=== PATIENT | female | born 1985 | race Caucasian/White ===

== ENCOUNTER 2017-06-30 03:08 | Inpatient (IN) | payer OTHER ==
[2017-06-30] MEDS ORDERED: Ketorolac INJ* 30 MG/ML 1 ML VIAL IV ONE (03:37)
[2017-06-30] MEDS ORDERED: NS 0.9% 1000 ML*IV.FLUID IV ONE (03:37)
[2017-06-30] MEDS ORDERED: Morphine INJ* 4 MG/ML 1 ML SYRINGE (NEW SYRINGE VERSION) IV ONE ×2 (03:39→08:55)
[2017-06-30] MEDS ORDERED: Metoclopramide IV* 5 MG/ML 2 ML VIAL IV SLOW PU ONE (03:40)
[2017-06-30 04:29] LABS: ABS Basophils 0 10^3/ul (0-0.2); ABS Eosinophils 0.1 10^3/ul (0-0.6); ABS Lymphocytes 1.2 10^3/ul (1.0-4.8); ABS Monocytes 0.7 10^3/ul (0-0.8); ABS Neutrophils 14.5 10^3/ul (1.5-7.7); ABS Nucleated RBC 0 10^3/ul; Eosinophil % 0.4 % (0-6); Hematocrit 32 % (35-47); Hemoglobin 10.5 g/dl (12.0-16.0); Lymphocyte % 7.2 % (25-47); Mean Corpuscular HGB Conc 33 g/dl (31-36); Mean Corpuscular Hemoglobin 26 pg (27-31); Mean Corpuscular Volume 79 fL (80-97); Mean Platelet Volume 8 um3 (7.4-10.4); Nucleated Red Blood Cells % 0; Platelet Count 453 10^3/ul (150-450); Red Blood Count 4.02 10^6/ul (4.0-5.4); Red Cell Distribution Width 16 % (10.5-15); White Blood Count 16.5 10^3/ul (3.5-10.8)
[2017-06-30] MEDS ORDERED: Potassium Chlor TAB* 20 MEQ TAB.ER PO ONE (04:44)
[2017-06-30] MEDS ORDERED: HYDROmorphone INJ* 2 MG/ML CARPUJECT SYRINGE IV SLOW PU ONE (05:51)
[2017-06-30 05:52] LABS: Urine Appearance Clear; Urine Blood 2+ (Negative); Urine Color Yellow; Urine Ketones Negative (Negative); Urine Protein 1+(30 mg/dL) (Negative); Urine Specific Gravity 1.028 (1.010-1.030); Urine Urobilinogen Negative (Negative)
[2017-06-30] MEDS ORDERED: Levofloxacin 750 MG IVPREMIX(* 750 MG/150 ML BAG IVPB ONE (06:09)
--- NOTE | 2017-06-30 06:30 | ED ---
Keshia Galeano Julia, scribed for Jarred Slater MD on 06/30/17 at 0403 . Abdominal Pain/Female - HPI Summary HPI Summary: This patient is a 32 year old F BIBA to [facility] accompanied by her with a chief complaint of LUQ abdominal pain that radiates to the L flank since 9:30 last night. Patient reports body aches and diaphoresis, chills at night, and soft stools for the past week. Patient denies dysuria.The patient rates the pain 8/10 in severity. Patient has history of UTIs. - History of Current Complaint Chief Complaint: EDFlankPain Stated Complaint: ABD PAIN Time Seen by Provider: 06/30/17 03:26 Hx Obtained From: Patient ?: No - Denies, had vasectomey Onset/Duration: Sudden Onset, Lasting Days Timing: Constant Pain Intensity: 8 Pain Scale Used: 0-10 Numeric Location: Discrete At: LUQ - Left, Flank Radiates: Yes Radiates to: Other - L flank Associated Signs and Symptoms: Positive: Other: - body aches and diaphoresis, chills at night, and soft stools Allergies/Adverse Reactions: Allergies Allergy/AdvReac Type Severity Reaction Status Date / Time Sulfa (Sulfonamide AdvReac Mild Rash Verified 06/30/17 03:19 Antibiotics) PMH/Surg Hx/FS Hx/Imm Hx Endocrine/Hematology History: Reports: Hx Diabetes - Gestational Cardiovascular History: Reports: Hx Hypertension - induced hypertension Denies: Hx Pacemaker/ICD Sensory History: Denies: Hx Hearing Aid Neurological History: Reports: Hx Migraine Psychiatric History: Reports: Hx Anxiety - post anxiety, Hx Panic Disorder - hx of anxiety mostly post related Denies: Hx Eating Disorder, Hx of Violent Episodes Against Others - Surgical History Surgery Procedure, Year, and Place: 2007, 2009, 2013 c section. appendectomy in 2005, wisdom teeth,paratoid cyst removal 2009,exploratory laparatomy for endometriosis 1999,nasal septum 2006 Hx Anesthesia Reactions: No Infectious Disease History: No Infectious Disease History: Denies: Hx Clostridium Difficile, Hx Hepatitis, Hx Human Immunodeficiency Virus (HIV), Hx of Known/Suspected MRSA, Hx Shingles, Hx Tuberculosis, Hx Known/ Suspected VRE, Hx Known/Suspected VRSA, History Other Infectious Disease, Traveled Outside the [place] in Last 30 Days - Family History Known Family History: Negative: Cardiac Disease - Social History Alcohol Use: Occasionally Substance Use Type: Reports: None Smoking Status (MU): Heavy Every Day Tobacco Smoker Type: Cigarettes Amount Used/How Often: 1/2 PPD Length of Time of Smoking/Using Tobacco: On and Off for 16 Years (~8 Years) Have You Smoked in the Last Year: Yes Review of Systems Positive: Chills, Skin Diaphoresis, Other - body aches Positive: Abdominal Pain Positive: flank pain. Negative: dysuria All Other Systems Reviewed And Are Negative: Yes Physical Exam - Summary Physical Exam Summary: VITAL SIGNS: Reviewed. GENERAL: Patient is a well-developed and nourished female who is lying comfortable in the stretcher. Patient is not in any acute respiratory distress. HEAD AND FACE: No signs of trauma. No ecchymosis, hematomas or skull depressions. No sinus tenderness. EYES: PERRLA, EOMI x 2, No injected conjunctiva, no nystagmus. EARS: Hearing grossly intact. Ear canals and tympanic membranes are within normal limits. MOUTH: Oropharynx within normal limits. NECK: Supple, trachea is midline, no adenopathy, no JVD, no carotid bruit, no c- spine tenderness, neck with full ROM. CHEST: Symmetric, no tenderness at palpation LUNGS: Clear to auscultation bilaterally. No wheezing or crackles. CVS: Regular rate and rhythm, S1 and S2 present, no murmurs or gallops appreciated. ABDOMEN: Soft, L CVA tenderness. No signs of distention. No rebound no guarding , and no masses palpated. Bowel sounds are hyperactive. EXTREMITIES: FROM in all major joints, no edema, no cyanosis or clubbing. NEURO: Alert and oriented x 3. No acute neurological deficits. Speech is normal and follows commands. SKIN: Dry and warm Triage Information Reviewed: Yes Vital Signs On Initial Exam: Initial Vitals Temp Pulse Resp BP Pulse Ox 98.8 F 117 18 122/72 99 06/30/17 03:17 06/30/17 03:17 18 03:17 06/30/17 03:17 06/30/17 03:17 Vital Signs Reviewed: Yes Diagnostics - Vital Signs Vital Signs Temp Pulse Resp BP Pulse Ox 06/30/17 03:17 98.8 F 117 18 122/72 99 - Laboratory Lab Results: Lab Results 06/30/17 06/30/17 06/30/17 Range/Units 04:00 04:00 04:00 WBC 16.5 H (3.5-10.8) 10^3/ul RBC 4.02 (4.0-5.4) 10^6/ul Hgb 10.5 L (12.0-16.0) g/dl Hct 32 L (35-47) % MCV 79 L (80-97) fL MCH 26 L (27-31) pg MCHC 33 (31-36) g/dl RDW 16 H (10.5-15) % Plt Count 453 H (150-450) 10^3/ul MPV 8 (7.4-10.4) um3 Neut % (Auto) 87.7 H (38-83) % Lymph % (Auto) 7.2 L (25-47) % [place] % (Auto) 4.5 (0-7) % Eos % (Auto) 0.4 (0-6) % Baso % (Auto) 0.2 (0-2) % Absolute Neuts (auto) 14.5 H (1.5-7.7) 10^3/ul Absolute Lymphs (auto) 1.2 (1.0-4.8) 10^3/ul Absolute Monos (auto) 0.7 (0-0.8) 10^3/ul Absolute Eos (auto) 0.1 (0-0.6) 10^3/ul Absolute Basos (auto) 0 (0-0.2) 10^3/ul Absolute Nucleated RBC 0 10^3/ul Nucleated RBC % 0 Sodium 135 (133-145) mmol/L Potassium 3.2 L (3.5-5.0) mmol/L Chloride 103 (101-111) mmol/L Carbon Dioxide 27 (22-32) mmol/L Anion Gap 5 (2-11) mmol/L BUN 16 (6-24) mg/dL Creatinine 0.58 (0.51-0.95) mg/dL Est GFR ( Amer) 153.0 (>60) Est GFR (Non-Af Amer) 119.0 (>60) BUN/Creatinine Ratio 27.6 H (8-20) Glucose 99 (70-100) mg/dL Lactic Acid 0.9 (0.5-2.0) mmol/L Calcium 9.2 (8.6-10.3) mg/dL Total Bilirubin 0.20 (0.2-1.0) mg/dL AST 8 L (13-39) U/L ALT 9 (7-52) U/L Alkaline Phosphatase 68 (34-104) U/L C-Reactive Protein 137.84 H (< 5.00) mg/L Total Protein 8.2 (6.4-8.9) g/dL Albumin 3.6 (3.2-5.2) g/dL Globulin 4.6 H (2-4) g/dL Albumin/Globulin Ratio 0.8 L (1-3) Beta HCG, Quant < 0.60 mIU/mL Urine Color Urine Appearance Urine pH (5-9) Ur Specific Campbell (1.010-1.030) Urine Protein (Negative) Urine Ketones (Negative) Urine Blood (Negative) Urine Nitrate (Negative) Urine Bilirubin (Negative) Urine Urobilinogen (Negative) Ur Leukocyte Esterase (Negative) Urine WBC (Auto) (Absent) Urine RBC (Auto) (Absent) Urine Bacteria (Absent) Urine Glucose (Negative) 06/30/17 Range/Units 05:15 WBC (3.5-10.8) 10^3/ul RBC (4.0-5.4) 10^6/ul Hgb (12.0-16.0) g/dl Hct (35-47) % MCV (80-97) fL MCH (27-31) pg MCHC (31-36) g/dl RDW (10.5-15) % Plt Count (150-450) 10^3/ul MPV (7.4-10.4) um3 Neut % (Auto) (38-83) % Lymph % (Auto) (25-47) % [place] % (Auto) (0-7) % Eos % (Auto) (0-6) % Baso % (Auto) (0-2) % Absolute Neuts (auto) (1.5-7.7) 10^3/ul Absolute Lymphs (auto) (1.0-4.8) 10^3/ul Absolute Monos (auto) (0-0.8) 10^3/ul Absolute Eos (auto) (0-0.6) 10^3/ul Absolute Basos (auto) (0-0.2) 10^3/ul Absolute Nucleated RBC 10^3/ul Nucleated RBC % Sodium (133-145) mmol/L Potassium (3.5-5.0) mmol/L Chloride (101-111) mmol/L Carbon Dioxide (22-32) mmol/L Anion Gap (2-11) mmol/L BUN (6-24) mg/dL Creatinine (0.51-0.95) mg/dL Est GFR ( Amer) (>60) Est GFR (Non-Af Amer) (>60) BUN/Creatinine Ratio (8-20) Glucose (70-100) mg/dL Lactic Acid (0.5-2.0) mmol/L Calcium (8.6-10.3) mg/dL Total Bilirubin (0.2-1.0) mg/dL AST (13-39) U/L ALT (7-52) U/L Alkaline Phosphatase (34-104) U/L C-Reactive Protein (< 5.00) mg/L Total Protein (6.4-8.9) g/dL Albumin (3.2-5.2) g/dL Globulin (2-4) g/dL Albumin/Globulin Ratio (1-3) Beta HCG, Quant mIU/mL Urine Color Yellow Urine Appearance Clear Urine pH 5.0 (5-9) Ur Specific Campbell 1.028 (1.010-1.030) Urine Protein 1+(30 mg/dl) A (Negative) Urine Ketones Negative (Negative) Urine Blood 2+ A (Negative) Urine Nitrate Negative (Negative) Urine Bilirubin Negative (Negative) Urine Urobilinogen Negative (Negative) Ur Leukocyte Esterase Negative (Negative) Urine WBC (Auto) Trace(0-5/hpf) (Absent) Urine RBC (Auto) 3+(>10/hpf) A (Absent) Urine Bacteria 1+ A (Absent) Urine Glucose Negative (Negative) Result Diagrams: 06/30/17 04:00 06/30/17 04:00 Lab Statement: Any lab studies that have been ordered have been reviewed, and results considered in the medical decision making process. - CT A/P CT Interpretation Completed By: Radiologist - High density in the renal medullary pyramids suggest medullary sponge kidney. Re-Evaluation - Re-Evaluation 1 Re-Evaluation Time: 06:00 Change: Unchanged - Patient is still in pain, despite pain meds Abdominal Pain Fem Course/Dx - Course Course Of Treatment: Patient presents with LUQ abdominal pain that radiates to the L flank since 9:30 last night. Patient reports body aches and diaphoresis, chills at night, and soft stools for the past week. Patient is given Dilaudid, Toradol, Reglan, Morphine, and Potassium Chloride. A CT A/P indicative of left pyelonephritis. Patient is still in pain while in ED despite pain medication. Patient is admitted by Dr. Lofton. - Diagnoses Provider Diagnoses: left pyelonephritis - Provider Notifications Discussed Care Of Patient With: Michael Lofton - hospitalist Time Discussed With Above Provider: 06:13 Instructed by Provider To: Admit As Inpatient Discharge - Discharge Plan Condition: Fair Disposition: ADMITTED TO [facility] Referrals: Ximena Fuentes SURGEON ASSISTANT [Primary Care Provider] - The documentation as recorded by the Keshia guo Julia accurately reflects the service I personally performed and the decisions made by , Jarred Slater MD.
[2017-06-30] MEDS ORDERED: oxyCODONE TAB* 5 MG TAB PO PRN ×2 (07:48→12:00)
[2017-06-30 08:22] LABS: Corrected Retic Count 0.5 % (0.5-1.5); Hematocrit for Retic CNT 33 % (35-47); Immature Retic Fraction 0.38
--- NOTE | 2017-06-30 08:39 | RAD ---
CLINICAL HISTORY: Left-sided abdominal pain. Relevant surgical history includes appendectomy and "exploratory laparotomy for endometriosis" COMPARISON: None TECHNIQUE: Noncontrast CT examination of the abdomen and pelvis from the lung bases through the initial tuberosities. FINDINGS: VISUALIZED LUNG BASES: The visualized lung bases are grossly clear. There is no pleural effusion. ABDOMEN AND PELVIS: Evaluation of the solid organs and vasculature is limited without intravenous contrast. The liver, spleen, pancreas and adrenal glands are grossly normal in appearance. The gallbladder is normal. There is symmetrical increased density at the bilateral renal pyramids. At the lower pole of the right kidney (coronal image 32) there is a punctate calcification. Otherwise the kidneys are normal in appearance without focal mass or signs of hydronephrosis. Evaluation of the gastrointestinal tract is limited without oral contrast. The small and large bowel are not distended. Consistent with the patient's reported surgical history, the appendix is not seen and there is surgical material the base of the cecum. There is no gross retroperitoneal or mesenteric lymphadenopathy. The pelvic viscera is normal in appearance. Evaluation of vasculature is highly limited in the absence of IV contrast but at the expected location of the left ovarian vein there appears to be a dilated vessel measuring up to 8 mm in short axis diameter (axial image 54 that is contiguous with the left adnexa (axial image 63). The abdominal aorta and iliac arteries are normal in course and diameter. There are no sinister bone lesions. IMPRESSION: 1. Relative hyperattenuation at the bilateral renal appearance which could be seen in the setting of medullary sponge kidney. 2. Evaluation of vasculature is highly limited without intravenous contrast but there appears to be a mildly enlarged left ovarian vein contiguous with the left adnexa. Depending on the clinical presentation this could be seen in the setting of pelvic congestion syndrome (PCS). PCS is characterized by late day gravity dependent pelvic pain, dyspareunia, vague gastrointestinal symptoms and/or the presence of lower extremity and pelvic superficial varicose veins.
--- NOTE | 2017-06-30 08:41 | RAD ---
INDICATION: Fever, LEFT flank pain. COMPARISON: June 30, 2017 CT abdomen. TECHNIQUE: Dual energy PA and routine lateral views of the chest were obtained. REPORT: 6 cm RIGHT suprahilar rounded region of consolidation likely involving the superior segment of the RIGHT lower lobe. The lungs and pleural spaces are otherwise clear. Negative for pneumothorax. The heart, pulmonary vasculature, and mediastinal contours are unremarkable. Negative for free air beneath the diaphragm. IMPRESSION: In an appropriate clinical context the RIGHT suprahilar rounded region of airspace consolidation is most consistent with pneumonia. Radiographic follow-up after therapy suggested to assess for resolution.
[2017-06-30] MEDS: Ondansetron INJ* 2 MG/ML VIAL IV PRN ×2 (08:42→15:10)
[2017-06-30] MEDS ORDERED: Ondansetron INJ* 2 MG/ML VIAL IV ONE (08:56)
[2017-06-30] MEDS: Acetaminophen TAB* 325 MG PO PRN ×4 (09:56→23:16)
[2017-06-30] MEDS: NS 0.9% 1000 ML* 1,000 ML IV SCH ×2 (10:00→15:09)
--- NOTE | 2017-06-30 16:19 | PN ---
Progress Note - Progress Note Date of Service: 06/30/17 SOAP: Subjective: Reason for Consultation: Vague pelvic pain with top normal left ovarian vein seen on CT (Focused) HPI: Mrs. Segal is a woman that presented to the ER with left flank and pelvic pain for 24 hours and at least 3 weeks of feeling "unwell". She states that she has noticed more severe pelvic pain during menses, but is unsure if the pain is worse in the afternoons and evenings. She denies any significant pelvic or leg superficial varicose veins. She states that she occasionally has bleeding hemorrhoids since having children, but they have not required any treatment. She denies any extended post coital pain separate from the pain that caused her to visit the ER recently. PAST MEDICAL HISTORY: Includes gestational diabetes, hemorrhage, migraines, anxiety and depression now well controlled, history of gastritis now resolved, C- section x3, exploratory laparatomy for presumed endometriosis. MEDICATIONS: Includes oxycodone p.r.n. for migraines. ALLERGIES: To SULFA which causes a rash. FAMILY HISTORY: Father with type 1 diabetes, CAD, CKD, CHF, and CLL. Mother with MS. SOCIAL HISTORY: Previously smoked cigarettes, quit in her early 20s, now episodically smokes cigars. Rare alcohol. No illicits. 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 Objective: NAD, AAO x 3 Selected Entries 06/30/17 15:01 Temperature 101.5 F Temperature Oral Source Pulse Rate 118 Respiratory 17 Rate Blood Pressure 127/71 (mmHg) Blood Pressure 85 Mean O2 Sat by Pulse 100 Oximetry Labs: Laboratory Tests 06/30/17 06/30/17 04:00 04:00 WBC 16.5 H Neut % (Auto) 87.7 H Absolute Neuts (auto) 14.5 H BUN 16 Creatinine 0.58 Est GFR ( Amer) 153.0 Est GFR (Non-Af Amer) 119.0 BUN/Creatinine Ratio 27.6 H Imaging: Patient Name: CHELSEY SEGAL Medical Record#: [id number] Ordering Physician: Pop Marquez MD Acct.#: [id number] : 1985 Age: 32 Sex: F Location: EMERGENCY DEPARTMENT Exam Date: 06/30/17 0756 ADM Status: REG ER Order Information: CHEST PA & LAT 2 VWS Accession Number: [id number] CPT: 62654 INDICATION: Fever, LEFT flank pain. COMPARISON: June 30, 2017 CT abdomen. TECHNIQUE: Dual energy PA and routine lateral views of the chest were obtained. REPORT: 6 cm RIGHT suprahilar rounded region of consolidation likely involving the superior segment of the RIGHT lower lobe. The lungs and pleural spaces are otherwise clear. Negative for pneumothorax. The heart, pulmonary vasculature, and mediastinal contours are unremarkable. Negative for free air beneath the diaphragm. IMPRESSION: In an appropriate clinical context the RIGHT suprahilar rounded region of airspace consolidation is most consistent with pneumonia. Radiographic follow- up after therapy suggested to assess for resolution. <Electronically signed by Rubén Figueroa MD in OV> 06/30/17836 Dictated By: Rubén Figueroa MD Dictated Date/Time: 06/30/17836 Transcribed Date/Time: 06/30/17831 Patient Name: CHELSEY SEGAL Medical Record#: [id number] Ordering Physician: Jarred Slater MD Acct.#: [id number] : 1985 Age: 32 Sex: F Location: EMERGENCY DEPARTMENT Exam Date: 06/30/17337 ADM Status: [facility] ER Order Information: CT ABD/PEL W/O Accession Number: [id number] CPT: 33857 CLINICAL HISTORY: Left-sided abdominal pain. Relevant surgical history includes appendectomy and "exploratory laparotomy for endometriosis" COMPARISON: None TECHNIQUE: Noncontrast CT examination of the abdomen and pelvis from the lung bases through the initial tuberosities. FINDINGS: VISUALIZED LUNG BASES: The visualized lung bases are grossly clear. There is no pleural effusion. ABDOMEN AND PELVIS: Evaluation of the solid organs and vasculature is limited without intravenous contrast. The liver, spleen, pancreas and adrenal glands are grossly normal in appearance. The gallbladder is normal. There is symmetrical increased density at the bilateral renal pyramids. At the lower pole of the right kidney (coronal image 32) there is a punctate calcification. Otherwise the kidneys are normal in appearance without focal mass or signs of hydronephrosis. Evaluation of the gastrointestinal tract is limited without oral contrast. The small and large bowel are not distended. Consistent with the patient's reported surgical history, the appendix is not seen and there is surgical material the base of the cecum. There is no gross retroperitoneal or mesenteric lymphadenopathy. The pelvic viscera is normal in appearance. Evaluation of vasculature is highly limited in the absence of IV contrast but at the expected location of the left ovarian vein there appears to be a dilated vessel measuring up to 8 mm in short axis diameter ( axial image 54 that is contiguous with the left adnexa (axial image 63). The abdominal aorta and iliac arteries are normal in course and diameter. There are no sinister bone lesions. IMPRESSION: 1. Relative hyperattenuation at the bilateral renal appearance which could be seen in the setting of medullary sponge kidney. 2. Evaluation of vasculature is highly limited without intravenous contrast but there appears to be a mildly enlarged left ovarian vein contiguous with the left adnexa. Depending on the clinical presentation this could be seen in the setting of pelvic congestion syndrome (PCS). PCS is characterized by late day gravity dependent pelvic pain, dyspareunia, vague gastrointestinal symptoms and/or the presence of lower extremity and pelvic superficial varicose veins. <Electronically signed by Fabian Sahni MD in OV> 06/30/17 0836 Dictated By: Fabian Sahni MD Assessment: Subsequent to my conversation with Dr. Marquez in the morning, the patient has a chest xray that indicates her symptoms are most likely due to RUL pneumonia. As discussed with Chelsey, she may have an enlarged ovarain vein, but more women have symptom-free enlarge veins than women that have symptoms of Pelvic Congestion Syndrome. Certainly at this time I do not see any indication for further PCS workup. Plan: 1. Pneumonia treatment per medicine. 2. I discussed the features of PCS with Chelsey and gave her my contact information including my email. She was encouraged to look up PCS to determine if the menstrual/pelvic symptoms she has been experiencing are consistent with PCS. I will be happy to see her in the Interventional Radiology clinic should she decide her symptoms are severe enough to further investigate PCS.
--- NOTE | 2017-06-30 16:34 | HP ---
HISTORY AND PHYSICAL: DATE OF ADMISSION: 06/30/17 PRIMARY CARE PROVIDER: Rosita Fuentes NP HEALTHCARE PROXY: Her . CODE STATUS: Full. SOURCE OF INFORMATION: History obtained from interview with the patient and her . RELIABILITY: Good. CHIEF COMPLAINT: Left flank pain. HISTORY OF PRESENT ILLNESS: This is a 32-year-old female, no significant past medical history who had been in her usual state of health until approximately 2 weeks prior to presentation. She started to develop body aches and chills as well as night sweats that developed over the last 3 to 4 days to become lower back pain, occasionally involving her shoulders that left her feeling very uncomfortable. Around 2 a.m. the night of presentation, she woke up with left- sided flank pain and because of the increased pain, presented to the emergency room. She notes that she has had nausea over the last several weeks as well as vomiting several times per week, for the last 1 week. She has noted no dysuria , but has noted that her urine may have been malodorous. No urinary hesitancy. No diarrhea, constipation. She suffers from migraines as well as chronic daily headaches for which she takes Excedrin. She noticed no melena, bright red blood per rectum. She notes that her headaches have been worse with her fever, they started in the back of her head, although she does have periods of headache freedom after taking the Excedrin. She notes her menses are stable in duration, approximately 4 to 5 days without heavy bleeding, but over the last 3 to 4 months she has had increased pain with her menses. She notes palpitations at this time, but no chest pain, no shortness of breath. She notes increased fatigue at work, but has not consulted with her PCP at this time. When seen by this author, she is lying comfortably in bed. Her pain is well controlled without complaints expect for left flank pain. Her one child has been sick with the flu several weeks prior and both children have had strep throat. She denies any rhinorrhea or sore throat. She denies any cough. PAST MEDICAL HISTORY: Includes gestational diabetes, hemorrhage, migraines, anxiety and depression now well controlled, history of gastritis now resolved, x3. MEDICATIONS: Includes oxycodone p.r.n. for migraines. ALLERGIES: To SULFA which causes a rash. FAMILY HISTORY: Father with type 1 diabetes, CAD, CKD, CHF, and CLL. Mother with MS. SOCIAL HISTORY: Previously smoked cigarettes, quit in her early 20s, now episodically smokes cigars. Rare alcohol. No illicits. 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 REVIEW OF SYSTEMS: As per HPI, includes back pain becoming left-sided flank pain, positive nausea with episodic vomiting, fevers, chills with night sweats over several weeks, no weight loss, chronic daily headaches, malodorous urine, increased pain with menses, positive palpitations, increased fatigue, and sick contacts. Otherwise, all other systems reviewed and negative. PHYSICAL EXAMINATION GENERAL: Lying flat in bed, interactive, pleasant in no apparent distress. VITAL SIGNS: When seen by this author, 130/81, heart rate 119, respiratory rate is 18. She is 98% on room air. T-max in the emergency room is 100.6, although noted to be greater than 101 when measured at home. HEENT: Oropharynx is clear. She has moist mucous membranes. Sclerae are anicteric. NECK: She has no cervical or supraclavicular lymphadenopathy. She has elevated JVD to the angle of her ear. Lying flat in bed. LUNGS: Clear to auscultation. HEART: She has tachycardic heart rate with regular rhythm. No murmurs, rubs, or gallops. ABDOMEN: Soft, nontender, nondistended. Positive bowel sounds. EXTREMITIES: Her spine is midline. She has no tenderness to palpation, but costovertebral angle tenderness is quite severe on the left. Her extremities are warm, well perfused without clubbing, cyanosis, or edema. NEUROLOGIC: She is alert and oriented x3. She has no apparent anxiety, agitation, or depression. DIAGNOSTIC STUDIES/LAB DATA: Labs reviewed, notable for urine with blood, protein and 1+ bacteria, absent leukocyte esterase and nitrites. Trace white blood cells. Her serum white blood cell count is 16.5, 87.7 neutrophils, hemoglobin is 10.5, and MCV of 79. Potassium is 3.2, lactic acid 0.9, CRP is 137, beta hCG is less than 0.6. Data reviewed: Preliminary read from CT abdomen and pelvis without contrast indicates normal liver, spleen, pancreas, gallbladder, stomach, small bowel, large bowel, surgically absent appendix, although this is not correct per her H and P. Kidneys, note there is an increased density in the renal medullary pyramids suggesting small calcification and medullary sponge disease. Uterus is normal. Rectum normal. Bladder normal. With final impression, high density in the renal medullary pyramids suggestive of medullary sponge disease. Official read is pending. ASSESSMENT AND PLAN: This is a 32-year-old female presenting with several weeks of body aches, chills, and night sweats now found with fevers, leukocytosis, and exam was notable for a left flank pain. Systemic inflammatory response syndrome. Patient meets systemic inflammatory response syndrome criteria with tachycardia, fever. No notable source for infection identified at this time. She meets sepsis criteria. Most likely, do suspect infection with the urine as a source given bacteria in the urine as well as left flank pain. Blood cultures are pending. Received levofloxacin in the emergency room. We will continue with ceftriaxone. Two additional liters normal saline at 200 cc/hour until heart rate is better controlled. Tylenol for fever. I will check chest x-ray to complete fever workup. Check rapid flu given sick contacts at home. Hold on strep testing given absence of symptoms. Additional management pending findings of above. Hypokalemia, received potassium in the emergency room. We will follow repeat imaging tomorrow. History of headache, continue oxycodone for both flank pain as well as headache. Anemia, unclear etiology at this time. Add on iron, TIBC, ferritin, iron saturation, and reticulocyte counts at ED labs. Initiate iron if iron deficient. No obvious source of bleeding at this time. DVT prophylaxis, low risk. Ambulate ad tonny. [id number]/[facility] #: [id number] [facility]
--- NOTE | 2017-06-30 16:53 | CONSULT ---
Consult Consult: Date of Service: 06/30/17 Reason for Consultation: Vague pelvic pain with top normal left ovarian vein seen on CT (Focused) HPI: Mrs. Segal is a woman that presented to the ER with left flank and pelvic pain for 24 hours and at least 3 weeks of feeling "unwell". She states that she has noticed more severe pelvic pain during menses, but is unsure if the pain is worse in the afternoons and evenings. She denies any significant pelvic or leg superficial varicose veins. She states that she occasionally has bleeding hemorrhoids since having children, but they have not required any treatment. She denies any extended post coital pain separate from the pain that caused her to visit the ER recently. PAST MEDICAL HISTORY: Includes gestational diabetes, hemorrhage, migraines, anxiety and depression now well controlled, history of gastritis now resolved, C- section x3, exploratory laparatomy for presumed endometriosis. MEDICATIONS: Includes oxycodone p.r.n. for migraines. ALLERGIES: To SULFA which causes a rash. FAMILY HISTORY: Father with type 1 diabetes, CAD, CKD, CHF, and CLL. Mother with MS. SOCIAL HISTORY: Previously smoked cigarettes, quit in her early 20s, now episodically smokes cigars. Rare alcohol. No illicits. 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 Objective: NAD, AAO x 3 Selected Entries 06/30/17 15:01 Temperature 101.5 F Temperature Oral Source Pulse Rate 118 Respiratory 17 Rate Blood Pressure 127/71 (mmHg) Blood Pressure 85 Mean O2 Sat by Pulse 100 Oximetry Labs: Laboratory Tests 06/30/17 06/30/17 04:00 04:00 WBC 16.5 H Neut % (Auto) 87.7 H Absolute Neuts (auto) 14.5 H BUN 16 Creatinine 0.58 Est GFR ( Amer) 153.0 Est GFR (Non-Af Amer) 119.0 BUN/Creatinine Ratio 27.6 H Imaging: Patient Name: CHELSEY SEGAL Medical Record#: [id number] Ordering Physician: Pop Marquez MD Acct.#: [id number] : 1985 Age: 32 Sex: F Location: EMERGENCY DEPARTMENT Exam Date: 06/30/17 0756 ADM Status: REG ER Order Information: CHEST PA & LAT 2 VWS Accession Number: [id number] CPT: 32797 INDICATION: Fever, LEFT flank pain. COMPARISON: June 30, 2017 CT abdomen. TECHNIQUE: Dual energy PA and routine lateral views of the chest were obtained. REPORT: 6 cm RIGHT suprahilar rounded region of consolidation likely involving the superior segment of the RIGHT lower lobe. The lungs and pleural spaces are otherwise clear. Negative for pneumothorax. The heart, pulmonary vasculature, and mediastinal contours are unremarkable. Negative for free air beneath the diaphragm. IMPRESSION: In an appropriate clinical context the RIGHT suprahilar rounded region of airspace consolidation is most consistent with pneumonia. Radiographic follow- up after therapy suggested to assess for resolution. <Electronically signed by Rubén Figueroa MD in [place]> 06/30/17836 Dictated By: Rubén Figueroa MD Dictated Date/Time: 06/30/17836 Transcribed Date/Time: 06/30/17831 Patient Name: CHELSEY SEGAL Medical Record#: [id number] Ordering Physician: Jarred Slater MD Acct.#: [id number] : 1985 Age: 32 Sex: F Location: EMERGENCY DEPARTMENT Exam Date: 06/30/17337 ADM Status: [facility] ER Order Information: CT ABD/PEL W/O Accession Number: [id number] CPT: 23962 CLINICAL HISTORY: Left-sided abdominal pain. Relevant surgical history includes appendectomy and "exploratory laparotomy for endometriosis" COMPARISON: None TECHNIQUE: Noncontrast CT examination of the abdomen and pelvis from the lung bases through the initial tuberosities. FINDINGS: VISUALIZED LUNG BASES: The visualized lung bases are grossly clear. There is no pleural effusion. ABDOMEN AND PELVIS: Evaluation of the solid organs and vasculature is limited without intravenous contrast. The liver, spleen, pancreas and adrenal glands are grossly normal in appearance. The gallbladder is normal. There is symmetrical increased density at the bilateral renal pyramids. At the lower pole of the right kidney (coronal image 32) there is a punctate calcification. Otherwise the kidneys are normal in appearance without focal mass or signs of hydronephrosis. Evaluation of the gastrointestinal tract is limited without oral contrast. The small and large bowel are not distended. Consistent with the patient's reported surgical history, the appendix is not seen and there is surgical material the base of the cecum. There is no gross retroperitoneal or mesenteric lymphadenopathy. The pelvic viscera is normal in appearance. Evaluation of vasculature is highly limited in the absence of IV contrast but at the expected location of the left ovarian vein there appears to be a dilated vessel measuring up to 8 mm in short axis diameter ( axial image 54 that is contiguous with the left adnexa (axial image 63). The abdominal aorta and iliac arteries are normal in course and diameter. There are no sinister bone lesions. IMPRESSION: 1. Relative hyperattenuation at the bilateral renal appearance which could be seen in the setting of medullary sponge kidney. 2. Evaluation of vasculature is highly limited without intravenous contrast but there appears to be a mildly enlarged left ovarian vein contiguous with the left adnexa. Depending on the clinical presentation this could be seen in the setting of pelvic congestion syndrome (PCS). PCS is characterized by late day gravity dependent pelvic pain, dyspareunia, vague gastrointestinal symptoms and/or the presence of lower extremity and pelvic superficial varicose veins. <Electronically signed by Fabian Sahni MD in [place]> 06/30/17 0836 Dictated By: Fabian Sahni MD Assessment: Subsequent to my conversation with Dr. Marquez in the morning, the patient has a chest xray that indicates her symptoms are most likely due to RUL pneumonia. As discussed with Chelsey, she may have an enlarged ovarain vein, but more women have symptom-free enlarge veins than women that have symptoms of Pelvic Congestion Syndrome. Certainly at this time I do not see any indication for further PCS workup. Plan: 1. Pneumonia treatment per medicine. 2. I discussed the features of PCS with Chelsey and gave her my contact information including my email. She was encouraged to look up PCS to determine if the menstrual/pelvic symptoms she has been experiencing are consistent with PCS. I will be happy to see her in the Interventional Radiology clinic should she decide her symptoms are severe enough to further investigate PCS.
[2017-06-30] MEDS: Morphine INJ* 4 MG/ML 1 ML SYRINGE (NEW SYRINGE VERSION) IV PRN ×2 (17:38→21:17)
[2017-07-01] MEDS: Morphine INJ* 4 MG/ML 1 ML SYRINGE (NEW SYRINGE VERSION) IV PRN ×3 (01:13→09:47)
[2017-07-01] MEDS: Acetaminophen TAB* 325 MG PO PRN ×2 (04:17→08:44)
[2017-07-01] MEDS: Ondansetron INJ* 2 MG/ML VIAL IV PRN ×2 (04:17→12:20)
[2017-07-01 06:44] LABS: ABS Basophils 0 10^3/ul (0-0.2); ABS Eosinophils 0 10^3/ul (0-0.6); ABS Lymphocytes 1.5 10^3/ul (1.0-4.8); ABS Monocytes 1.1 10^3/ul (0-0.8); ABS Neutrophils 13.6 10^3/ul (1.5-7.7); ABS Nucleated RBC 0 10^3/ul; Eosinophil % 0.3 % (0-6); Hematocrit 27 % (35-47); Hemoglobin 9.1 g/dl (12.0-16.0); Mean Corpuscular HGB Conc 33 g/dl (31-36); Mean Corpuscular Hemoglobin 26 pg (27-31); Mean Corpuscular Volume 79 fL (80-97); Mean Platelet Volume 8 um3 (7.4-10.4); Nucleated Red Blood Cells % 0; Platelet Count 362 10^3/ul (150-450); Red Blood Count 3.48 10^6/ul (4.0-5.4); Red Cell Distribution Width 16 % (10.5-15); White Blood Count 16.3 10^3/ul (3.5-10.8)
[2017-07-01 07:14] LABS: EGFR Non-African American 132.1 (>60)
[2017-07-01] MEDS ORDERED: cefTRIAXone(*) 1 GM in NS 0.9% 50 ML* 50 ML IVPB SCH (08:00)
[2017-07-01] MEDS: cefTRIAXone 1000 MG SYRINGE IVPB Q24H IVPB SCH ×2 (08:23)
[2017-07-01] MEDS ORDERED: Ferrous Sulfate TAB* 325 MG PO SCH (09:00)
[2017-07-01] MEDS ORDERED: NS 0.9% 250 ML* 250 ML ONE (09:10)
[2017-07-01] MEDS: Azithromycin IV(*) 500 MG in NS 0.9% 250 ML* 250 ML IVPB SCH (09:13)
[2017-07-01] MEDS: Potassium Chlor TAB* 20 MEQ TAB.ER PO SCH ×2 (09:13→20:25)
--- NOTE | 2017-07-01 13:53 | PN ---
Subjective Date of Service: 07/01/17 Interval History: Patient states that she is feeling better. States that her pain in her flank has decreased with her defervscense and is now controllable on oral medications. Patient states that is is worse with deep breathing. Patient states that she has an occasional cough that produces small amounts of sputum and states that she has had an intermittent cough over the past month that is not productive. Patient states that she has been having MOCTEZUMA especially with climbing stairs within the past month along with general fatigue. Patient states that her LMP was in the First week of May and that she occasionally has menstruation that occurs in a greater than 1 month cycle but that she is usually regular. Patient denies any changes in her hair or nails, or constipation. Patient states that she has daily headaches which are frontal and that are usually responsive to excedrin and then typical migraines with aura which occur approximately twice a month without patterns or discernable precipitating factors. Patient denies current PATEL, changes in vision, F/C, N/V, CP, SOB, abdominal pain, dysuria, rash, or other pain. Family History: Unchanged from Admission Social History: Unchanged from Admission Past Medical History: Unchanged from Admission Objective Active Medications: Acetaminophen (Tylenol Tab*) 650 mg PO Q4H PRN PRN Reason: FEVER/PAIN Last Admin: 07/01/17 08:44 Dose: 650 mg Ferrous Sulfate (Ferrous Sulfate Tab*) 325 mg PO EVERY OTHER DAY [facility] Last Admin: 07/01/17 09:12 Dose: 325 mg Azithromycin 500 mg/ Sodium (Chloride) 250 mls @ 250 mls/hr IVPB Q24H [facility] Last Admin: 07/01/17 09:13 Dose: 250 mls/hr Ceftriaxone Sodium 1,000 mg/ (Sterile Water) 10 mls @ 40 mls/hr IVPB Q24H [facility] Last Admin: 07/01/17 08:23 Dose: 40 mls/hr Ondansetron HCl (Zofran Inj*) 4 mg IV Q4H PRN PRN Reason: NAUSEA/VOMITING Last Admin: 07/01/17 12:20 Dose: 4 mg Oxycodone HCl (Roxycodone Tab*) 10 mg PO Q6H PRN PRN Reason: PAIN Potassium Chloride (Klor Con Er Tab*) 20 meq PO BID [facility] Stop: 07/01/17 21:01 Last Admin: 07/01/17 09:13 Dose: 20 meq Vital Signs - 8 hr 07/01/17 07/01/17 09:47 11:37 Temperature 97.7 F Pulse Rate 84 Respiratory 18 17 Rate Blood Pressure 123/78 (mmHg) O2 Sat by Pulse 100 Oximetry Oxygen Devices in Use Now: None Appearance: Patient is a 32yo female who appears stated age and is sitting in the bed in [facility]. Eyes: No Scleral Icterus, PERRLA Ears/Nose/Mouth/Throat: NL Teeth, Lips, Gums, Clear Oropharnyx, Mucous Membranes Moist Neck: NL Appearance and Movements; NL JVP, Trachea Midline Respiratory: Symmetrical Chest Expansion and Respiratory Effort, Clear to Auscultation Cardiovascular: NL Sounds; No Murmurs; No JVD, RRR, No Edema Abdominal: NL Sounds; No Tenderness; No Distention, - - Spleen palpable under Left costal margin. Traube's space dull to percussion with deep breathing. Lymphatic: No Cervical Adenopathy Extremities: No Edema, No Clubbing, Cyanosis Skin: No Rash or Ulcers, No Nodules or Sclerosis Neurological: Alert and Oriented x 3, NL Sensation, NL Muscle Strength and Tone , - - CN II-XII intact. Result Diagrams: 07/01/17 06:09 07/01/17 06:09 Additional Lab and Data: Lab Results Assess/Plan/Problems-Billing Assessment: Patient is a 32yo female with a PMH for hemorrhage, Gestational Diabetes, migraines, and gastritis who presents with fatigue for a month and then 3-4 days of severe left flank pain, fevers, without associated urinary symptoms with a high white blood cell count and a chest x-ray consistent with pneumonia who is improving on antibiotics. - Patient Problems (1) Pneumonia Current Visit: Yes Status: Acute Code(s): J18.9 - PNEUMONIA, UNSPECIFIED ORGANISM SNOMED Code(s): 581569017 Comment: WBC count, SOB on exertion, intermittent cough, and infiltrate on CXR most likely represents pneumonia. Procalcitonin low. Continue on empiric treatment for CAP at this time. CRP and ESR elevated. Will draw MITESH, RF, and CHEO level to assess for other pathology that could affect both the lungs and the kidneys. (2) Hematuria Current Visit: Yes Status: Acute Code(s): R31.9 - HEMATURIA, UNSPECIFIED SNOMED Code(s): 66128014 Comment: Patient had 3+ blood and 1+ protein in urine. Patient has no josesito hematuria. Patient is several days late on her menstrual periods. Patient states this is not abnormal for her. Blood could represent small amounts of menstrual blood, but could also represent kideny pathology. No WBCs or LE. Minimal growth of E. Coli on urine culture. Covered by CAP treatment. (3) Migraines Current Visit: Yes Status: Acute Code(s): G43.909 - MIGRAINE, UNSP, NOT INTRACTABLE, WITHOUT STATUS MIGRAINOSUS SNOMED Code(s): 06584426 Comment: Patient states that she takes oxycodone and excedrin daily for frontal headache. Discussed medication overuse headache with patient and recommended she follow up outpatient with a neurologist to facilitate weaning off her medications. (4) Anemia Current Visit: Yes Status: Acute Code(s): D64.9 - ANEMIA, UNSPECIFIED SNOMED Code(s): 086328569 Comment: Microcytic, Hypochromic Anemia with anisocytosis, not present in 04/2015. Patient is not aware of other history of anemia not related to post- hemorrhage. No menorrhagia. No melena. Will begin iron supplementation every other day. (5) Flank pain Current Visit: Yes Status: Acute Code(s): R10.9 - UNSPECIFIED ABDOMINAL PAIN SNOMED Code(s): 666612329 Comment: Flank pain associated with fevers but no WBC or LE on urinalysis and minimal growth on urine culture. CT negative for stones. Controlled with home oxycodone. Not likely pyelonephritis. (6) DVT prophylaxis Current Visit: Yes Status: Acute Code(s): GCP8291 - SNOMED Code(s): 249266223 (7) Full code status Current Visit: Yes Status: Acute Code(s): Z78.9 - OTHER SPECIFIED HEALTH STATUS SNOMED Code(s): 758385962 Status and Disposition: Inpatient. Will discharge when medically able.
[2017-07-01] MEDS: oxyCODONE TAB* 5 MG TAB PO PRN ×2 (16:54→23:12)
[2017-07-02] MEDS: Acetaminophen TAB* 325 MG PO PRN (03:35)
[2017-07-02] MEDS: oxyCODONE TAB* 5 MG TAB PO PRN (05:22)
[2017-07-02 05:49] LABS: ABS Basophils 0 10^3/ul (0-0.2); ABS Eosinophils 0.1 10^3/ul (0-0.6); ABS Monocytes 0.7 10^3/ul (0-0.8); ABS Neutrophils 8.3 10^3/ul (1.5-7.7); ABS Nucleated RBC 0 10^3/ul; Eosinophil % 1.2 % (0-6); Hematocrit 27 % (35-47); Hemoglobin 9.2 g/dl (12.0-16.0); Lymphocyte % 17.7 % (25-47); Mean Corpuscular HGB Conc 34 g/dl (31-36); Mean Corpuscular Hemoglobin 27 pg (27-31); Mean Corpuscular Volume 79 fL (80-97); Mean Platelet Volume 8 um3 (7.4-10.4); Nucleated Red Blood Cells % 0; Platelet Count 421 10^3/ul (150-450); Red Blood Count 3.47 10^6/ul (4.0-5.4); Red Cell Distribution Width 16 % (10.5-15); White Blood Count 11.1 10^3/ul (3.5-10.8)
[2017-07-02] MEDS: cefTRIAXone 1000 MG SYRINGE IVPB Q24H IVPB SCH ×2 (08:54)
[2017-07-02] MEDS: Azithromycin IV(*) 500 MG in NS 0.9% 250 ML* 250 ML IVPB SCH (09:18)
[2017-07-02 12:09] VITALS: BP 116/83
--- NOTE | 2017-07-03 14:13 | DS ---
CC: Rosita Fuentes NP * DISCHARGE SUMMARY: DATE OF ADMISSION: 06/30/17 DATE OF DISCHARGE: 07/02/17 PRIMARY CARE PROVIDER: Rosita Fuentes NP MY ATTENDING WHILE IN THE HOSPITAL: Minesh Goldsmith MD.* (DICTATED BY UYEN CALIX) PRIMARY DISCHARGE DIAGNOSES: 1. Flank pain. 2. Probable pneumonia. 3. Hematuria. 4. Iron deficiency anemia. SECONDARY DISCHARGE DIAGNOSES: 1. Migraines. 2. Gastritis. 3. Gestational diabetes. 4. hemorrhage. 5. depression and anxiety. CONSULTING PROVIDER: Fabian Sahni MD, of Interventional Radiology. STUDIES DONE WHILE IN THE HOSPITAL: Abdomen and pelvis CT from 06/30/17 read as relative hyperattenuation in the bilateral renal appearance which can be seen in setting of medullary sponge kidney. Evaluation of vascular is highly limited without intravenous contrast, but there appears to be mildly enlarged left ovarian vein contiguous with the left adnexa depending on the clinical presentation, this could be seen in the same pelvic congestion syndrome, PCS as characterized by gravity dependent pelvic pain, dyspareunia, vague gastrointestinal symptoms and/or presence of lower extremity and pelvic superficial varicose vein. Chest x-ray from 06/30/17 read as in appropriate clinical context, a right suprahilar rounded region of airspace consolidation that is most consistent with pneumonia, radiographic followup after therapy suggested to assess resolution. MEDICATIONS: 1. Oxycodone 50 mg p.o. q.12 hours as needed for pain. 2. Tylenol 650 mg p.o. q.4 hours as needed. 3. Azithromycin 250 mg p.o. daily x3. 4. Ceftin 500 mg p.o. q.12 hours x10. 5. Ferrous sulfate 325 mg p.o. every other day. 6. Excedrin 1 daily for headache. NEW MEDICATIONS AT DISCHARGE: 1. Tylenol. 2. Azithromycin. 3. Ceftin. 4. Ferrous sulfate. MEDICATION DISCONTINUED AT DISCHARGE: None. HOSPITAL COURSE: This is a brief summary of patient's presentation. For more details, please see the history and physical from Dr. Pop Marquez on . In brief, the patient is a 32-year-old female with past medical history significant for the above, who presents with a 1-month history of fatigue and slight dyspnea on exertion, especially when going upstairs. The patient has over the past 3 to 4 days before admission developed lower back pain, radiating into her flank. The patient also has nausea and vomiting for 1 week. The patient has no dysuria or other signs of urinary tract infection. The patient has daily headaches for which she takes Excedrin and oxycodone. The patient had no other symptoms. The patient was found to have a chest x-ray and abdominal CT as above and the patient was admitted to the hospital as she had high fevers up to 102.9 on admission. The patient was given Levaquin in the emergency department and then started on ceftriaxone and azithromycin on the floor. The patient had significant continued flank pain which increased overnight from 06/30/17 to 07/01/17 requiring IV morphine for control. This was discontinued after 5 doses and the patient had significant decrease in her symptoms. The patient had an elevated white blood cell count, sedimentation rate and C-reactive protein. The patient had decreased iron less than 15 and percent saturation of 4. The patient had negative procalcitonin and was treated for pneumonia any ways. The patient's chest x-ray was re-examined and showed the possibility of hilar lymphadenopathy on the left and right side in addition to the above read infiltrate. The patient states that she defervesced in the morning of 07/01/17 and this significantly decreased her flank pain, so she was able to be transitioned back to oxycodone orally for her pain. The patient did not have any fevers after the afternoon of 06/30/17. The patient was tachycardic when she had fevers, but had no other significant vital sign abnormalities including hypoxia. The patient states that she had had an intermittent dry cough over the course of last month to accompany her fatigue, but had no significant increase in her cough while in the hospital. The patient has chronic daily headaches for which she takes Excedrin daily and oxycodone. The patient states that she has never seen a neurologist for this and was not familiar with the concept of medication overuse headaches. The patient continued to improve. The patient did not have evidence of kidney stone on CT exam as above and did not pass any kidney stones into the filter. In the hospital; however, she did pass a small amount of mucus which she states accompanied the significant decrease in her flank pain. The patient had 3+ blood and 1+ protein in her urine and 1+ bacteria which grew out to be 25,000 to 50,000 colonies of E. coli, likely a contaminant. The patient had hypokalemia while in the hospital which was resolved with supplementation. The patient on 07/02/17, had decrease in white blood cell count from 16.5 to 11.1. There was no significant decrease in patient's white blood cell count from 06/30 to 07/01/17. The patient had thyroid testing which was within normal limits. The patient had iron studies as above and was started on iron supplementation which she tolerated well. There was concern for the patient having disorder affecting both her kidneys and her lungs. Rheumatoid factor, antinuclear antibody, ANCA panel and angiotensin converting enzymes were ordered and are pending at this time. The patient felt much better on and was amenable to discharge. The patient's spleen was found to be enlarged by palpation and percussion while she was in the hospital, but nontender to palpation and this was not noted on patient's CT scan. PHYSICAL EXAM ON DAY OF DISCHARGE: General: The patient is a 32-year-old female who appears stated age and is sitting comfortably in bed, in no acute distress. Vital Signs: Temperature 98.0, pulse rate 81, respiratory rate 16, oxygen saturation 100% on room air. Blood pressure 116/83. HEENT: Head: Normocephalic, atraumatic, sclerae intact. No conjunctival injection. Nasal mucosa moist. Oral mucosa moist. No pharyngeal erythema, discharge, or exudates. Neck: The patient has moderately sized bilateral submandibular lymphadenopathy, which is nontender. No other enlarged lymph nodes. No JVD. No carotid bruit auscultated. Cardiac: Regular rate and rhythm. No clicks, murmurs, gallops, rubs. Pulses 2+ in bilateral dorsalis pedis, posterior tibialis, and radial areas. No lower extremity edema noted. No calf tenderness. Respiratory: Clear to auscultation bilaterally. No wheezes, rales , or rhonchi. Good air exchange bilaterally. Abdomen: Soft, nontender, nondistended. Bowels sounds present, normoactive in all 4 quadrants. No hepatomegaly. Mild splenomegaly to percussion and palpation. Stable from previous exam. No abdominal bruits auscultated. Genitourinary: No suprapubic or CVA tenderness. Skin: Clean, dry and intact. No rash. No erythema nodosum. No scleroderma. Neuro: Cranial nerves II through XII intact. No headache at this time. Alert and oriented x3. No focal deficits. Psychiatric : Very pleasant and cooperative. LABORATORY DATA: On day of discharge, white blood cell count 11.1, hemoglobin 9.2, hematocrit 27, MCV 79, RDW 16. Sodium 131, potassium 3.7, chloride 100, carbon dioxide 23, anion gap 8, BUN 7, creatinine 0.52, calcium 8.8. Other pertinent laboratory data from admission, on admission platelet count 453, reticulocyte count 0.7, corrected reticulocyte count 0.5, potassium 3.2, iron less than 15, percent saturation 4, CRP 137 over 84. Urine showed 1+ protein, 2 + blood, 3+ red blood cells, 1+ bacteria. Influenza A and B negative. DISCHARGE PLAN: The patient will be discharged to home. The patient will be continued on empiric coverage for pneumonia, which is likely her diagnosis. It is atypical for a 32-year-old patient to have pneumonia, especially one that presents atypically is found incidentally on chest x-ray. This is unlikely to be the etiology of her fatigue over the past month. The patient's mother has had multiple sclerosis which does not have a significant correlation with other autoimmune disorders; however, given the patient's age and gender, autoimmune disorder should be followed up starting with laboratory studies ordered while in the hospital. The patient should follow this up with her primary care provider and have repeat inflammatory markers drawn. After the acute phase of this illness has passed, the patient should also have repeat lung imaging to asses for the resolution of her infiltrates. The patient should take iron as above, as this may be contributing to her fatigue. The patient is euthyroid. The patient might have medullary sponge kidney as above on CT scan which would explain her hematuria; however, not her proteinuria. The patient is not hypertensive and does not have any other reason for proteinuria. The patient has no white blood cells in her urine; however, glomerulonephritis or other intrinsic urinary pathology should be entertained. However, the patient has a normal BUN and creatinine. The patient should follow up with her primary care provider about her headaches and the possibility that her headaches currently represent medication overuse headaches and the patient discussed a neurology consultation to help supervise weaning her off her abortive medications and starting her on prophylactic medications for her headaches. The patient should also discuss weaning off her opiates as these are not medications that are traditionally effective in the prevention of headaches specifically. The patient should follow up with her primary care provider in 1 week. The patient should have regular unrestricted diet and engage in activity as tolerated. TIME SPENT: Approximately 60 minutes was spent on the discharge, 30 of which was spent [id number] with the patient obtaining history and physical and discussing treatment plan. UYEN CALIX [id number]/CPS #: [id number] BRIANA
== END 2017-07-02 12:00 | disposition home or self-care (01) | DRG 139 ==
LOC: ED 03:08 → MED 07:50 → OBSVTOIN 07-01 09:31
PROVIDERS: ADMIT Internal Medicine; ATTEND Internal Medicine
DX: J18.9 Pneumonia, unspecified organism (principal); D50.9 Iron deficiency anemia, unspecified; E87.6 Hypokalemia; D64.9 Anemia, unspecified; F17.290 Nicotine dependence, other tobacco product, uncomplicated; R10.12 Left upper quadrant pain; G43.909 Migraine, unspecified, not intractable, without status migrainosus; R31.9 Hematuria, unspecified; R59.0 Localized enlarged lymph nodes; Z72.89 Other problems related to lifestyle; Z88.2 Allergy status to sulfonamides; Z83.3 Family history of diabetes mellitus; Z82.49 Family history of ischemic heart disease and other diseases of the circulatory system; Z80.6 Family history of leukemia; Z84.1 Family history of disorders of kidney and ureter; Z82.0 Family history of epilepsy and other diseases of the nervous system; Z87.440 Personal history of urinary (tract) infections
CPT/HCPCS: 36415; 71046; 74176; 80048; 80053; 81003; 81015; 82164; 82728; 83516; 83540; 83550; 83605; 84145; 84436; 84443; 84479; 84702; 85025; 85045; 85652; 86038; 86140; 86235; 86431; 87040; 87077; 87086; 87186; 87502; 87899; 99285; A9270-GY; G0378; J0456; J0696; J1170; J1885; J2270; J2405; J2765

== ENCOUNTER 2018-03-15 16:05 | Emergency (ER) | payer SELFPAY ==
[2018-03-15] MEDS ORDERED: HYDROcodone/ACETAMIN 5-325 MG* 1 TAB PO ONE (16:30)
--- NOTE | 2018-03-15 16:45 | ED ---
Upper Extremity Pain - HPI Summary HPI Summary: Patient is a 32-year-old female with history of fibromyalgia and an undiagnosed rheumatoid disorder presenting to the ED after a fall with left elbow pain, left rib pain and left lower back pain. She states she feels she is unable to picking tech her feet appropriately and has been dealing with this for a while and has been seen by neurologist. She takes 20 mg oxycodone every 6 hours as well as Cymbalta. She has not taken her home medication of oxycodone and is requesting this on arrival. She appears otherwise well. She denies any other complaints at this time. She denies any numbness or tingling or weakness in the legs more than baseline. - History of Current Complaint Chief Complaint: EDExtremityUpper Stated Complaint: FALL/LT SIDE INJURY Time Seen by Provider: 03/15/18 16:19 Hx Obtained From: Patient Hx Last Menstrual Period: 12/20/15 Mechanism Of Injury: Blunt Trauma Onset/Duration: Started Hours Ago Severity Initially: Moderate Severity Currently: Moderate Pain Location: Elbow, Other: - lower back, left ribs Aggravating Factor(s): Movement, Lifting, Flexion, Extension Alleviating Factor(s): Rest, Ice Associated Signs & Symptoms: Positive: Bruising. Negative: Swelling, Redness Related History: Dominant Hand Right - Risk Factors Non-Orthopedic Risk Factor: Negative DVT Risk Factors: Negative Septic Arthritis Risk Factor: Negative Compartment Syndrome Risk Factors: Pain - Allergies/Home Medications Allergies/Adverse Reactions: Allergies Allergy/AdvReac Type Severity Reaction Status Date / Time Sulfa (Sulfonamide AdvReac Mild Rash Verified 03/15/18 16:09 Antibiotics) PMH/Surg Hx/FS Hx/Imm Hx Previously Healthy: Yes Endocrine/Hematology History: Denies: Hx Diabetes - Gestational (3RD) Cardiovascular History: Denies: Hx Hypertension - (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, Hx Pacemaker/ ICD Respiratory History: Denies: Hx Asthma History: Denies: Hx Renal Disease Sensory History: Denies: Hx Contacts or Glasses, Hx Hearing Aid Opthamlomology History: Denies: Hx Contacts or Glasses Neurological History: Reports: Hx Migraine Psychiatric History: Reports: Hx Anxiety - post anxiety, Hx Panic Disorder - hx of anxiety mostly related Denies: Hx Eating Disorder, Hx of Violent Episodes Against Others - Surgical History Surgery Procedure, Year, and Place: 2007, 2009, 2012 c section. appendectomy in 2005,. wisdom teeth,. paratoid cyst removal 2009,. exploratory laparatomy for endometriosis 1999,. nasal septum 2006 Hx Anesthesia Reactions: No - Immunization History Hx Pertussis Vaccination: No Immunizations Up to Date: Yes Infectious Disease History: No Infectious Disease History: Denies: Hx Clostridium Difficile, Hx Hepatitis, Hx Human Immunodeficiency Virus (HIV), Hx of Known/Suspected MRSA, Hx Shingles, Hx Tuberculosis, Hx Known/ Suspected VRE, Hx Known/Suspected VRSA, History Other Infectious Disease, Traveled Outside the [place] in Last 30 Days - Family History Known Family History: Positive: None Negative: Cardiac Disease - Social History Occupation: Unemployed Lives: With Family Alcohol Use: Occasionally Hx Substance Use: No Substance Use Type: Reports: None Hx Tobacco Use: Yes Smoking Status (MU): Heavy Every Day Tobacco Smoker Type: Cigarettes Amount Used/How Often: 1/2 PPD Length of Time of Smoking/Using Tobacco: On and Off for 16 Years (~8 Years) Have You Smoked in the Last Year: Yes Review of Systems Constitutional: Negative Negative: Fever, Chills, Fatigue, Skin Diaphoresis Negative: Palpitations, Chest Pain Negative: Shortness Of Breath, Cough Positive: Arthralgia - lft lower back pain, left rib pain, left elbow pain Skin: Negative Neurological: Negative All Other Systems Reviewed And Are Negative: Yes Physical Exam Triage Information Reviewed: Yes Vital Signs On Initial Exam: Initial Vitals Temp Pulse Resp BP Pulse Ox 99.2 F 94 16 127/97 100 03/15/18 16:06 03/15/18 16:06 03/15/18 16:06 03/15/18 16:06 03/15/18 16:06 Vital Signs Reviewed: Yes Appearance: Positive: Well-Nourished Skin: Positive: Warm, Skin Color Reflects Adequate Perfusion Head/Face: Positive: Normal Head/Face Inspection Eyes: Positive: EOMI, FLORINA, Conjunctiva Clear Neck: Positive: Supple, No Lymphadenopathy Respiratory/Lung Sounds: Positive: Clear to Auscultation, Breath Sounds Present Cardiovascular: Positive: RRR, Pulses are Symmetrical in both Upper and Lower Extremities Musculoskeletal: Positive: Pain @ - left lower back pain, left rib pain, left elbow pain Neurological: Positive: Speech Normal Psychiatric: Positive: Normal, Affect/Mood Appropriate AVPU Assessment: Alert Diagnostics - Vital Signs Vital Signs Temp Pulse Resp BP Pulse Ox 03/15/18 16:06 99.2 F 94 16 127/97 100 - Laboratory Lab Statement: Any lab studies that have been ordered have been reviewed, and results considered in the medical decision making process. Course/Dx - Course Course Of Treatment: During the course treatment, the patient is evaluated for left elbow, left lower back and left rib pain. She is given 10mg hydrocodone on arrival. Patient normally takes 20 mg oxycodone. There is a contusion to the left elbow contusion to the left lower back. She is able to flex and extend at the hips, as well as rotate at the hips. She is able to rotate and flex and extend as well at the neck. Denies any posterior cervical spine tenderness. Denies any thoracic or spine tenderness otherwise. On physical examination there's no step-off noted. She appears otherwise well. X-rays obtained which shows no fracture. Patient will follow up with PCP regarding new pulmonary finding. - Diagnoses Provider Diagnoses: Fall Discharge - Sign-Out/Discharge Documenting (check all that apply): Patient Departure - adenoidectomy - Discharge Plan Condition: Stable Disposition: HOME Forms: *Work Release Referrals: Ximena Fuentes NP [Primary Care Provider] - Additional Instructions: Ibuprofen as needed for discomfort Use your at home Oxycodone only if needed for worsening pain and symptoms Moist heat to the area Off work x 2 days - Billing Disposition and Condition Condition: STABLE Disposition: Home
[2018-03-15 18:12] VITALS: BP 119/79
== END 2018-03-15 18:09 | disposition home or self-care (01) ==
LOC: ED 16:05
DX: S50.02XA Contusion of left elbow, initial encounter (principal); R07.81 Pleurodynia; F41.0 Panic disorder [episodic paroxysmal anxiety]; S30.0XXA Contusion of lower back and pelvis, initial encounter; F17.210 Nicotine dependence, cigarettes, uncomplicated; M79.7 Fibromyalgia; W19.XXXA Unspecified fall, initial encounter; Y92.9 Unspecified place or not applicable
CPT/HCPCS: 72110; 99282

== ENCOUNTER 2018-06-29 15:33 | Emergency (ER) | payer OTHER ==
[2018-06-29 16:04] VITALS: BP 136/100
[2018-06-29] MEDS ORDERED: NS 0.9% 1000 ML** 1,000 ML IV.FLUID IV ONE (16:21)
[2018-06-29 16:30] LABS: Influenza A Molecular NEGATIVE (Negative); Influenza B Molecular NEGATIVE (Negative)
--- NOTE | 2018-06-29 16:43 | ED ---
HPI Febrile Illness - HPI Summary HPI Summary: Patient is a 33 y/o female who presents to the ED c/o fever. For the past 3 days shes c/o fever, body aches, wet cough, CP secondary to cough, post-nasal drip, sore throat secondary to post-nasal drip, and N/V. Her phlegm is yellow- green in color. 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 She is a chronic pain patient for pelvic and lower back pain, and currently c/o this pain as well. Patient rates her pain as a 7/10 in severity. She took Motrin today in addition to her normal chronic pain medications, however notes shes not sure if she was able to keep any medications down due to her vomiting. LNMP 2 weeks ago. PMHx septic PNA in her upper right lobe 1 year ago. - History of Current Complaint Hx Obtained From: Patient Hx Last Menstrual Period: 12/20/15 Onset/Duration: Started Days Ago - 3, Still Present Timing: Constant Current Severity: Moderate Pain Intensity: 7 Pain Scale Used: 0-10 Numeric Aggravating Factors: Nothing Alleviating Factors: Nothing Associated Signs and Symptoms: Cough, Nausea, Vomiting Related History: Similar Episode as: - hx septic PNA - Additional Pertinent History Primary Care Physician: JUNAID - Allergy/Home Medications Allergies/Adverse Reactions: Allergies Allergy/AdvReac Type Severity Reaction Status Date / Time Sulfa (Sulfonamide AdvReac Mild Rash Verified 06/29/18 16:05 Antibiotics) PMH/Surg Hx/FS Hx/Imm Hx Endocrine/Hematology History: Reports: Autoimmune Disease - unknown - pelvic pain Denies: Hx Diabetes - Gestational (3RD) Cardiovascular History: Denies: Hx Hypertension - (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, Hx Pacemaker/ ICD Respiratory History: Reports: Hx Pneumonia - 2018 pneumonia, septic Denies: Hx Asthma History: Denies: Hx Renal Disease Musculoskeletal History: Reports: Hx Back Problems Sensory History: Denies: Hx Contacts or Glasses, Hx Hearing Aid Opthamlomology History: Denies: Hx Contacts or Glasses Neurological History: Reports: Hx Migraine, Other Neuro Impairments/Disorders - mother has MS in same body areas Psychiatric History: Reports: Hx Anxiety - post anxiety, Hx Panic Disorder - hx of anxiety mostly related Denies: Hx Eating Disorder, Hx of Violent Episodes Against Others - Surgical History Surgery Procedure, Year, and Place: 2007, 2009, 2012 c section. appendectomy in 2005,. wisdom teeth,. paratoid cyst removal 2009,. exploratory laparatomy for endometriosis 1999,. nasal septum 2007 Hx Anesthesia Reactions: No Infectious Disease History: No Infectious Disease History: Reports: Hx Shingles - maybe 2x Denies: Hx Clostridium Difficile, Hx Hepatitis, Hx Human Immunodeficiency Virus (HIV), Hx of Known/Suspected MRSA, Hx Tuberculosis, Hx Known/Suspected VRE , Hx Known/Suspected VRSA, History Other Infectious Disease, Traveled Outside the [place] in Last 30 Days - Family History Known Family History: Positive: None Negative: Cardiac Disease - Social History Alcohol Use: None Hx Substance Use: No Substance Use Type: Reports: Marijuana Hx Tobacco Use: Yes Smoking Status (MU): Current Every Day Smoker Type: Cigarettes Amount Used/How Often: 1/2 PPD Length of Time of Smoking/Using Tobacco: On and Off for 16 Years (~8 Years) Have You Smoked in the Last Year: Yes Review of Systems Positive: Fever, Other - body aches Positive: Sore Throat - secondary to post-nasal drip, Other - post-nasal drip Positive: Chest Pain - secondary to cough Positive: Cough - wet Positive: Vomiting, Nausea Positive: Myalgia - pelvic, low back - chronic All Other Systems Reviewed And Are Negative: Yes Physical Exam - Summary Physical Exam Summary: Constitutional: Well-developed, Well-nourished, Alert. (-) Distressed Skin: Warm, Dry HENT: Normocephalic; Atraumatic Eyes: Conjunctiva normal Neck: Musculoskeletal ROM normal neck. (-) JVD, (-) Stridor, (-) Tracheal deviation Cardio: Rhythm regular, rate normal, Heart sounds normal; Intact distal pulses; The pedal pulses are 2+ and symmetric. Radial pulses are 2+ and symmetric. (-) Murmur Pulmonary/Chest wall: Effort normal. (-) Respiratory distress, (-) Wheezes, (-) Rales Abd: Soft, (-) tenderness, (-) Distension, (-) Guarding, (-) Rebound Musculoskeletal: (-) Edema Lymph: (-) Cervical adenopathy Neuro: Alert, Oriented x3 Psych: Mood and affect Normal Triage Information Reviewed: Yes Vital Signs On Initial Exam: Initial Vitals Temp Pulse Resp BP Pulse Ox 98.8 F 99 16 136/100 100 06/29/18 16:01 06/29/18 16:01 06/29/18 16:01 06/29/18 16:01 06/29/18 16:01 Vital Signs Reviewed: Yes Diagnostics - Vital Signs Vital Signs Temp Pulse Resp BP Pulse Ox 06/29/18 16:01 98.8 F 99 16 136/100 100 - Laboratory Lab Results: Lab Results 06/29/18 Range/Units 16:18 Influenza A (Rapid) Negative (Negative) Influenza B (Rapid) Negative (Negative) Result Diagrams: 06/29/18 17:00 06/29/18 17:00 Lab Statement: Any lab studies that have been ordered have been reviewed, and results considered in the medical decision making process. - Radiology CXR Radiology Interpretation Completed By: Radiologist Summary of Radiographic Findings: No active cardiopulmonary disease is noted. Previously identified right upper lobe mass is no longer present. ED physician reviewed radiology report. Re-Evaluation - Re-Evaluation First Eval Re-Evaluation Time: 18:15 Change: Improved Comment: Pt feels much better and is ready to be discharged. Course/Dx - Course Course Of Treatment: Patient is a 33 y/o female who presents to the ED c/o fever , body aches, wet cough, CP secondary to cough, post-nasal drip, sore throat secondary to post-nasal drip, and N/V. A physical exam was unremarkable. A CXR was negative. She was negative for Influenza A and B. In the course patient was given Zofran, fluids, and Percocet which improved her symptoms. Final dx are viral syndrome and chronic pain. She is discharged home and is agreeable with this plan. - Diagnoses Provider Diagnoses: Viral syndrome, Chronic pain Discharge - Sign-Out/Discharge Documenting (check all that apply): Patient Departure - Discharge Patient Received Moderate/Deep Sedation with Procedure: No - Discharge Plan Condition: Good Disposition: HOME Patient Education Materials: Viral Syndrome (ED) Print Language: AMHARIC Forms: *Work Release Referrals: Ximena Fuentes NP [Primary Care Provider] - - Billing Disposition and Condition Condition: GOOD Disposition: Home - Attestation Statements Document Initiated by Scribe: Yes Documenting Scribe: Marci Niño Provider For Whom Scribe is Documenting (Include Credential): MD Otto Waltersibe Attestation: I, Marci Niño, scribed for Sandra Anne MD on 06/29/18 at 2228. Scribe Documentation Reviewed: Yes Provider Attestation: The documentation as recorded by the scribe, Marci Niño accurately reflects the service I personally performed and the decisions made by me, Sandra Laird MD Status of Scribe Document: Viewed
[2018-06-29] MEDS ORDERED: Ondansetron INJ* 2 MG/ML VIAL IV ONE (16:50)
[2018-06-29] MEDS ORDERED: oxyCODONE/Acetamin 5/325 MG* TAB PO ONE (16:50)
[2018-06-29 17:07] LABS: ABS Basophils 0.1 10^3/ul (0-0.2); ABS Eosinophils 0.4 10^3/ul (0-0.6); ABS Lymphocytes 1.4 10^3/ul (1.0-4.8); ABS Monocytes 0.6 10^3/ul (0-0.8); ABS Neutrophils 4.4 10^3/ul (1.5-7.7); ABS Nucleated RBC 0 10^3/ul; Eosinophil % 5.6 %; Hematocrit 34 % (35-47); Hemoglobin 11.1 g/dl (12.0-16.0); Lymphocyte % 20.9 %; Mean Corpuscular HGB Conc 33 g/dl (31-36); Mean Corpuscular Hemoglobin 26 pg (27-31); Mean Corpuscular Volume 80 fL (80-97); Nucleated Red Blood Cells % 0.1; Platelet Count 306 10^3/ul (150-450); Red Blood Count 4.24 10^6/ul (4.00-5.40); Red Cell Distribution Width 17 % (10.5-15); White Blood Count 6.9 10^3/ul (3.5-10.8)
[2018-06-29 17:16] LABS: Activated Partial Thrombo Time 31.3 seconds (26.0-36.3); INR 0.96 (0.77-1.02)
[2018-06-29 17:25] LABS: Albumin 4.1 g/dL (3.2-5.2); Albumin/Globulin Ratio 1.6 (1-3); BUN/Creatinine Ratio 17.7 (8-20); Calcium 8.7 mg/dL (8.6-10.3); EGFR African American 132.5 (>60); EGFR Non-African American 109.5 (>60); Globulin 2.5 g/dL (2-4); Potassium 4.1 mmol/L (3.5-5.0); Total Bilirubin 0.2 mg/dL (0.2-1.0); Total Protein 6.6 g/dL (6.4-8.9)
[2018-06-30 02:36] LABS: Erythrocyte Sed Rate 10 mm/Hr (0-20)
== END 2018-06-29 18:29 | disposition home or self-care (01) ==
LOC: ED 15:33
DX: B34.9 Viral infection, unspecified (principal); G89.29 Other chronic pain; R50.9 Fever, unspecified; R11.2 Nausea with vomiting, unspecified; Z88.2 Allergy status to sulfonamides; F17.210 Nicotine dependence, cigarettes, uncomplicated; J02.9 Acute pharyngitis, unspecified; R07.9 Chest pain, unspecified; R05 Cough; M54.5 Low back pain
CPT/HCPCS: 36415; 71046; 80053; 83605; 84484; 85025; 85610; 85652; 85730; 87040; 96361; 96374; 99282; A9270-GY; J2405

== ENCOUNTER 2018-09-27 17:36 | Emergency (ER) | payer OTHER ==
--- OUTSIDE RECORDS SUMMARY | 2018-09-27 17:51 | XMS REPORT | Continuity of Care Document ---
:1985 External Reference #:[id number] Author Name Guadalupe Flanagan M.D. 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 oldest has asthma. Siblings 2 1/2 sisters, and 1 1/2 brother. Brother dt ETOH. sisters - healthy. 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 Marital Status . 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 Tobacco Use Start: Unknown End: Former Cigarette Smoker x 5 years. Unknown 1/2 Pack Daily ETOH Use Occasional a couple of drinks once a month Tobacco Use Start: Unknown Patient is a current smoker, smokes some days Smoking Status Reviewed: 07/05/18 Patient is a current smoker, smokes some days Seat Belt/Car Seat Always uses seat belt Dom Violence Screen Feels safe at home, safe at work, and in the community Allergies, Adverse Reactions, Alerts Active Allergies Reaction Severity Comments Date Sulfa 08/04/2013 Medications Active Medications SIG Qnty Indications Ordering Date Provider Fentanyl 1 patch every 48h 7patches G89.29 Ximena Fuentes, 03/25/2018 25mcg/HR [employer] Patches 72HR Duloxetine HCL take two capsules 60caps F41.1 Ximena Fuentes, 12/15/2017 20mg by mouth every day [employer] Caps DR Nav Aquino 1 by mouth every 120caps G89.29 Ximena Fuentes, 12/11/2017 25mg 8h during the day [employer] Capsules and 2 at at bedtime failed on gabapentin Alprazolam take 1 to 2 120tabs F41.1 Lucy 11/25/2017 0.5mg tablets by mouth [place] Afnp-C Tablets twice daily as needed Ondansetron place one tablet 30tabs R11.2 Ximena Fuentes, 07/08/2017 8mg under the tongue [employer] Tablets Dispers every 4 to 6 hours as needed for nausea / vomiting History Medications Note No Work Please excuse Ximena Fuentes, 09/03/2018 - Chelsey's absence [employer] 09/14/2018 from work on August 23, and August 30- due to illness Note For Work Patient is able to Dilan Donis 07/12/2018 - return to work with Terri Silvestre 09/14/2018 no restrictions. Please call [phone] with any questions. Thank you. Levofloxacin Take 1 tablet once 7tabs Darrion Donis 07/07/2018 - 750mg a day for 7 days. Terri Silvestre 09/14/2018 Tablets Azithromycin Take 2 tablets (500 6tabs Dilan Olmstead 07/05/2018 - 250mg mg) on the first MD Lalit 09/14/2018 Tablets day then 1 tablet every day for 4 days. Note For Work Please excuse from Dilan Donis 07/05/2018 - work starting Terri Silvestre 07/12/2018 06/29/18 due to medical illness. She may return to work once symptom/ fever free for 24 hours. Oxycodone-Acetaminophe 1 by mouth 8 hours 15tabs Ximena Fuentes, 2017 - n as needed for pain [employer] 04/29/2018 10-325mg Tablets Oxycodone HCL 1 by mouth every 8 90tabs Ximena Fuentes, 02/15/2018 - 20mg hours as needed mdd [employer] 03/25/2018 Tablets 3 Gabapentin 1 po bid 60caps Ximena Fuentes, 12/30/2017 - 300mg Capsules [employer] 12/30/2017 Gabapentin 1 po tid 90caps Ximena Fuentes, 12/30/2017 - 300mg Capsules [employer] 02/15/2018 Oxycodone HCL 1 by mouth every 6h 120tab Karel Krishnan 11/25/2017 - 15mg s Terri Lei 02/15/2018 Tablets Gabapentin 1 po bid 60caps Lucy 11/14/2017 - 300mg Capsules [facility], 12/15/2017 Afnp-C Lyrica 1 by mouth every 8h 120cap M25.541 Ximena Fuentes, 10/23/2017 - 25mg Capsules during the day and s [facility] 11/24/2017 2 at at bedtime Oxycodone-Acetaminophe 1 by mouth 12 hours 30tabs Ximena Fuentes, 2017 - n as needed [facility] 11/25/2017 10-325mg Tablets Duloxetine HCL 1 by mouth every 30caps F41.9 Ximena Fuentes, 10/23/2017 - 30mg Caps day [facility] 12/15/2017 DR Nav Barajas Chelsey had a Ximena Fuentes, 10/23/2017 - normal physical [facility] 11/24/2017 exam 4\\6\\18 and was cleared for employment without restrictions Dilaudid 1-2 po q 8h for 30tabs G43.019 Ximena Fuentes, 10/14/2017 - 2mg Tablets severe headache [facility] 10/23/2017 Note No Work Chelsey was seen by G43.Mir Fuentes, 10/14/2017 - me today for [facility] 11/24/2017 illness and may not return towork until Thursday, 7\\2\\18 Oxycodone HCL 1 by mouth every 60tabs M54.5 Ximena Fuentes, 09/23/2017 - 10mg 12h [employer] 10/23/2017 Tablets Topamax Take 1 tablet by 50tabs R51 Ximena Fuentes, 07/24/2017 - 25mg Tablets mouth daily for 1 [facility] 10/14/2017 week, then take 1 tablet twice daily for the reminaing month Alprazolam 1-2 by mouth every 60tabs Ximena Fuentes, 07/24/2017 - 0.25mg Tablets day as needed [facility] 11/25/2017 anxiety Note Due To Health Chelsey had a Ximena Fuentes, 07/24/2017 - Issues normal physical [facility] 10/14/2017 exam today and may work without restrictions Ondansetron HCL Ximena Fuentes, 07/08/2017 - 8mg [facility] 07/08/2017 Tablets Note No Work Chelsey continues J15.8 Ximena Fuentes, 07/08/2017 - to be ill and [facility] 07/24/2017 unable to work. She may not return to work until 07/20/17 Valacyclovir HCL take one tablet by 30tabs Ximena Fuentes, 03/16/2017 - 500mg mouth one time [facility] 07/05/2018 Tablets daily Valacyclovir HCL 1 by mouth three 21tabs B02.9 Sofia C. 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 03/16/2017 Tablets days Oxycodone HCL 1 tab by mouth 60tabs M54.5 Ximena Fuentes, 01/12/2017 - 15mg every 8hours as [facility] 09/23/2017 Tablets needed Physical Therapy evaluate and treat M54.5 Ximena Fuentes, 01/12/2017 - low back pain that [facility] 03/16/2017 radiates to the hips with numbness in 2 right toes Cyclobenzaprine HCL 1 by mouth every 60tabs M54.5 Ximena Fuentes, 2016 - 5mg 6-8h during the [facility] 11/24/2017 Tablets day, 2 by mouth at bedtime as needed Ondansetron 1-2 by mouth every 30tabs Ximena Fuentes, 05/02/2016 - 4mg Tablets 4-6h as needed [facility] 07/08/2017 Dispers nausea Omeprazole 1 by mouth twice a 60caps R51 Ximena Fuentes, 04/30/2016 - 20mg Capsules day [facility] 07/04/2017 DR Sigala-Acetaminophe 1 by mouth q8 hours 45tabs R51 Ximena Alfredo, 2015 - n as needed [facility] 03/16/2017 10-325mg Tablets Phentermine HCL 1 by mouth once a 30tabs R63.5 Ximena Fuentes, 08/13/2015 - 37.5mg day [facility] 04/30/2016 Tablets Ciprofloxacin HCL 1 tab by mouth 14tabs N39.0 Ximena Fuentes, 07/13/2015 - 250mg twice a day x 7 [facility] 08/13/2015 Tablets days Fioricet take 1 tablet every 45caps R51 Ximena Fuentes, 07/13/2015 - 50-300-40mg 6 hours as needed [facility] 08/13/2015 Capsules for migraines Oxycodone-Acetaminophe 1 by mouth q6 hours 60tabs R51 Ximena Fuentes, 2015 - n as needed [facility] 08/13/2015 10-325mg Tablets Quetiapine Fumarate take one tablet by 60tabs F31.61 Ximena Fuentes, 2015 - 200mg mouth twice a day [facility] 04/30/2016 Tablets Seroquel take 1 bid on day1, 20tabs F31.61 Ximena Fuentes, 05/07/2015 - 50mg Tablets 2 bid on day 2, 3 [facility] 07/13/2015 bid on day 3 and 4 bid on day 4 Seroquel 1 po bid 30tabs Ximena Fuentes, 05/07/2015 - 200mg Tablets [facility] 07/13/2015 Wellbutrin XL 1 by mouth every 30tabs F31.61 Ximena Fuentes, 04/23/2015 - 150mg day [facility] 04/30/2016 Tablets ER 24HR Zyprexa take two for one 4tabs F31.61 Ximena Fuentes, 04/23/2015 - 5mg Tablets day, then 1 for [facility] 07/13/2015 2days Zyprexa 1 by mouth every F31.61 Ximena Laroser, 04/23/2015 - 10mg Tablets day [facility] 04/23/2015 Olanzapine 1 po qd F31.61 Ximena Fuentes, 04/09/2015 - 20mg Tablets [facility] 04/09/2015 Propranolol HCL 1 by mouth three 45tabs F41.9 Ximena Laroser, 04/09/2015 - 10mg times a day [facility] 07/13/2015 Tablets Zyprexa 1 by mouth every 30tabs F31.61 Ximena Alfredo, 03/22/2015 - 15mg Tablets day [facility] 04/23/2015 Oxycodone-Acetaminophe 1 by mouth q6 hours 60tabs G43.109 Ximena Alfredo, - n as needed [facility] 04/23/2015 10-325mg Tablets Cipro 1 by mouth twice a 14tabs N39.0 Ximena Alfredo, 03/22/2015 - 500mg Tablets day for 7 days [facility] 04/23/2015 Pyridium 1po tid 12tabs Ximena Alfredo, 03/22/2015 - 200mg Tablets [facility] 04/23/2015 Zyprexa 1po qd 30tabs F31.61 Ximena Brisenorer, 02/23/2015 - 10mg Tablets [facility] 03/22/2015 Oxycodone HCL 1 by mouth every 6 60tabs G43.109 Ximena Alfredo, 02/23/2015 - 10mg hour as needed [facility] 03/22/2015 Tablets Oxycodone-Acetaminophe 1 by mouth q12 60tabs R51 Ximena Alfredo, 02/05/2015 - n hours as needed [facility] 02/23/2015 10-325mg Tablets Latuda 2 po qd 60tabs F31.61 Ximena Brisenorer, 01/15/2015 - 20mg Tablets [facility] 02/23/2015 Nicoderm CQ apply one every in 14unit F17.210 Ximena Alfredo, 01/15/2015 - 14mg/24HR the morning, august s [facility] 04/23/2015 Patches 24HR use up to 6 weeks Nicoderm CQ apply one patch 14unit F17.210 Ximena Alfredo, 01/15/2015 - 21mg/24HR daily for up to 6 s [facility] 04/23/2015 Patches 24HR weeks Ativan 1 by mouth tid for 45tabs F41.9 Ximena Alfredo, 09/18/2014 - 2mg Tablets anxiety [facility] 07/13/2015 Xanax 1 by mouth qd-bid 45tabs 300.00 Ximena Fuentes, 05/15/2014 - 2mg Tablets [facility] 09/18/2014 Abilify Mainspencera Ximena Fuentes, 05/01/2014 - 400mg [facility] 05/01/2014 Suspension Rec Abilify 1 by mouth every 30tabs F31.61 Ximena Fuentes, 05/01/2014 - 15mg Tablets morning [facility] 02/23/2015 Zolpidem Tartrate 1 by mouth every 30tabs G47.00 Ximena Fuentes, 05/01/2014 - 10mg night at bedtime as [facility] 04/23/2015 Tablets needed Depakote take two tablets by 120tab F31.61 Ximena Fuentes, 05/01/2014 - 250mg Tablets DR mouth every morning s [facility] 04/30/2016 and take two tablets by mouth at bedtime Ativan 1-2 by mouth twice 90tabs 300.00 Ximena Fuentes, 04/14/2014 - 1mg Tablets a day as needed [facility] 05/15/2014 anxiety Abilify 1 by mouth twice a 60tabs 296.60 Ximena Fuentes, 04/14/2014 - 5mg Tablets day [facility] 05/01/2014 Depakote Take One Tablet By 30tabs 296.60 Ximena Fuentes, 04/03/2014 - 125mg Tablets DR Mouth Twice A Day [facility] 05/01/2014 Latuda 1po every day 20tabs 296.60 Ximena Fuentes, 04/03/2014 - 20mg Tablets [facility] 05/01/2014 Buspirone HCL 1 po bid 60tabs 300.00 Ximena Fuentes, 04/03/2014 - 15mg [facility] 04/03/2014 Tablets Bupropion HCL XL 2 po qd 60tabs 311 Ximena Fuentes, 04/03/2014 - 150mg [facility] 04/03/2014 Tablets ER 24HR Ambien 1 by mouth every 15tabs Ximena Fuentes, 03/21/2014 - 10mg Tablets night at bedtime as [facility] 05/01/2014 needed Ativan 1 by mouth twice a 45tabs 300.00 Ximena Fuentes, 12/01/2013 - 1mg Tablets day as needed [facility] 04/14/2014 Sertraline HCL 1 po qd Ximena Fuentes, 11/08/2013 - 100mg [facility] 12/01/2013 Tablets Percocet 1-2 tabs by mouth 90tabs 346.00 Ximena Fuentes, 11/08/2013 - 5-325mg Tablets as needed for [facility] 02/05/2015 migraine khan Klonopin 1 po bid prn 30tabs 300.00 Ximena Fuentes, 10/27/2013 - 1mg Tablets [facility] 12/01/2013 Trazodone HCL 1-2 po at hs 60tabs 300.00 Ximena Fuentes, 10/10/2013 - 50mg [facility] 03/21/2014 Tablets Bupropion HCL XL 1 po qd 30tabs 311 Ximena Fuentes, 10/06/2013 - 150mg [facility] 11/08/2013 Tablets ER 24HR Klonopin 1 po bid prn 30tabs Ximena Fuentes, 10/06/2013 - 1mg Tablets [facility] 10/10/2013 Ativan 1 po bid prn 30tabs 300.00 Mercedes Swenson, 09/29/2013 - 1mg Tablets [employer]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 10/27/2013 Buspirone HCL 1 po bid 60tabs 300.00 Ximena Fuentes, 09/29/2013 - 15mg [facility] 12/01/2013 Tablets Codeine/Acetaminophen 1 po q 4-6 hrs prn 30tabs Mercedes Swenson, 09/21/2013 - for more severe [employer] TECHNICIAN 10/10/2013 300-30mg Tablets pain Valtrex 1 po q 8 hrs x 7 21tabs 053.9 Mercedes Swenson, 09/15/2013 - 1gm Tablets days [employer] TECHNICIAN 09/22/2013 Butalbital/Acetaminoph take one to two 90tabs 784.0 Ximena Fuentes, 2013 - en/Caffeine tablets by mouth [facility] 01/15/2015 50-325-40mg every 4 hours as Tablets needed for headache maximum daily dose=four tablets Flonase 2 sprays in each 1Bottl Ximena Fuentes, 08/04/2013 - 50mcg/Act nostril daily e [facility] 09/14/2018 Suspension Cipro 1 po bid 10tabs Unknown - 250mg Tablets 10/10/2013 Pyridium 1 po tid x 2 days 6tabs Unknown - 100mg Tablets 10/10/2013 Sertraline HCL 1 po qd 90tabs Laxmi Thacker - 50mg 11/08/2013 Tablets Sertraline HCL 1 and 1/2 po qd Unknown - 100mg 04/03/2014 Tablets Cefuroxime Axetil 1 by mouth twice a Unknown - 250mg day 07/24/2017 Tablets Percocet prn Q8 He's for Unknown - 10-325mg Tablets breakthrough pain 04/15/2018 Medications Administered in Office Medication SIG Qnty Indications Ordering Provider Date TB Intradermal Test AMARIS Jones 04/30/2016 Injection Immunizations CPT Code Status Date Vaccine Lot # [id number] Given 04/11/2018 Influenza vac quadrivalent preservative free 3yrs and up [id number] Given 03/03/2016 Influenza Vac, [place], [place] [address] Given 03/12/2015 Influenza Vac, Quadrivalent, Slit Virus, Im [id number] Given 01/12/2013 Tdap Tetanus, W Pertussis Vital Signs Date Vital Result Comment 09/14/2018 2:45pm BP Systolic 140 mmHg BP Diastolic 80 mmHg Heart Rate 84 /min Body Temperature 99.0 F Respiratory Rate 16 /min Height 64 inches 5'4" Weight 122.00 lb BMI (Body Mass Index) 20.9 kg/m2 07/05/2018 4:04pm BP Systolic 128 mmHg BP Diastolic 94 mmHg Heart Rate 87 /min Body Temperature 98.2 F Respiratory Rate 16 /min O2 % BldC Oximetry 99 % Height 64 inches 5'4" Weight 118.00 lb BMI (Body Mass Index) 20.3 kg/m2 03/25/2018 4:16pm BP Systolic 144 mmHg BP Diastolic 88 mmHg Heart Rate 88 /min Body Temperature 98.2 F Respiratory Rate 16 /min Weight 117.00 lb 12/14/2017 4:51pm BP Systolic 130 mmHg BP Diastolic 70 mmHg Heart Rate 70 /min Body Temperature 97.2 F Respiratory Rate 16 /min Weight 114.12 lb 11/25/2017 12:59pm BP Systolic 168 mmHg BP Diastolic 112 mmHg Heart Rate 72 /min Body Temperature 97.7 F Height 64 inches 5'4" Weight 113.00 lb BMI (Body Mass Index) 19.4 kg/m2 11/10/2017 10:42am BP Systolic 134 mmHg BP Diastolic 88 mmHg Heart Rate 80 /min Body Temperature 98.2 F Height 64 inches 5'4" Weight 112.00 lb BMI (Body Mass Index) 19.2 kg/m2 10/14/2017 12:06pm BP Systolic 120 mmHg BP Diastolic 80 mmHg Heart Rate 66 /min Body Temperature 98.2 F Respiratory Rate 16 /min Height 64 inches 5'4" Weight 113.25 lb BMI (Body Mass Index) 19.4 kg/m2 07/24/2017 12:53pm BP Systolic 120 mmHg BP Diastolic 80 mmHg Heart Rate 80 /min Body Temperature 97.8 F Respiratory Rate 16 /min Height 64 inches 5'4" Weight 119.38 lb BMI (Body Mass Index) 20.5 kg/m2 07/08/2017 12:59pm BP Systolic 118 mmHg BP Diastolic 78 mmHg Heart Rate 80 /min Body Temperature 98.2 F Respiratory Rate 16 /min Height 64 inches 5'4" Weight 117.00 lb BMI (Body Mass Index) 20.1 kg/m2 07/04/2017 11:41am BP Systolic 102 mmHg BP Diastolic 68 mmHg Heart Rate 68 /min Body Temperature 98.2 F Respiratory Rate 16 /min Height 64 inches 5'4" Weight 120.50 lb BMI (Body Mass Index) 20.7 kg/m2 03/16/2017 3:20pm BP Systolic 120 mmHg BP Diastolic 80 mmHg Heart Rate 80 /min Body Temperature 98.6 F Height 64 inches 5'4" Weight 123.25 lb BMI (Body Mass Index) 21.2 kg/m2 03/07/2017 11:33am BP Systolic 130 mmHg BP Diastolic 90 mmHg Heart Rate 68 /min Body Temperature 98.6 F Respiratory Rate 16 /min Weight 126.00 lb 01/12/2017 2:20pm BP Systolic 120 mmHg BP Diastolic 90 mmHg Heart Rate 80 /min Body Temperature 99.0 F Respiratory Rate 16 /min Height 64 inches 5'4" Weight 123.00 lb BMI (Body Mass Index) 21.1 kg/m2 05/02/2016 1:05pm BP Systolic 122 mmHg BP Diastolic 84 mmHg Heart Rate 80 /min Body Temperature 98.5 F Respiratory Rate 16 /min Height 64 inches 5'4" Weight 123.00 lb BMI (Body Mass Index) 21.1 kg/m2 04/30/2016 9:25am BP Systolic 122 mmHg BP Diastolic 84 mmHg Heart Rate 80 /min Body Temperature 98.5 F Respiratory Rate 16 /min Height 64 inches 5'4" Weight 123.00 lb BMI (Body Mass Index) 21.1 kg/m2 Right Visual Acuity Distance 20/20 Left Visual Acuity Distance 20/20 08/13/2015 5:34pm BP Systolic 130 mmHg BP Diastolic 80 mmHg Heart Rate 88 /min Body Temperature 98.6 F Respiratory Rate 16 /min Weight 150.00 lb 07/13/2015 2:26pm BP Systolic 120 mmHg BP Diastolic 80 mmHg Heart Rate 68 /min Body Temperature 98.2 F Respiratory Rate 16 /min Weight 148.00 lb 05/07/2015 4:52pm BP Systolic 120 mmHg BP Diastolic 80 mmHg Heart Rate 104 /min Body Temperature 98.8 F Respiratory Rate 16 /min Height 64 inches 5'4" Weight 134.00 lb BMI (Body Mass Index) 23.0 kg/m2 04/23/2015 5:02pm BP Systolic 102 mmHg BP Diastolic 62 mmHg Heart Rate 74 /min Respiratory Rate 16 /min Height 64 inches 5'4" Weight 131.00 lb BMI (Body Mass Index) 22.5 kg/m2 04/09/2015 5:13pm BP Systolic 120 mmHg BP Diastolic 78 mmHg Heart Rate 80 /min Body Temperature 98.0 F Respiratory Rate 18 /min Height 64 inches 5'4" Weight 126.00 lb BMI (Body Mass Index) 21.6 kg/m2 03/22/2015 3:45pm BP Systolic 112 mmHg BP Diastolic 74 mmHg Heart Rate 108 /min Body Temperature 98.2 F Height 64 inches 5'4" Weight 123.38 lb BMI (Body Mass Index) 21.2 kg/m2 03/12/2015 4:54pm BP Systolic 120 mmHg BP Diastolic 70 mmHg Heart Rate 76 /min Body Temperature 99.0 F Respiratory Rate 16 /min Height 64 inches 5'4" Weight 123.00 lb BMI (Body Mass Index) 21.1 kg/m2 02/23/2015 10:34am BP Systolic 102 mmHg BP Diastolic 62 mmHg Heart Rate 68 /min Body Temperature 97.7 F Height 64 inches 5'4" Weight 118.00 lb BMI (Body Mass Index) 20.3 kg/m2 02/05/2015 6:15pm BP Systolic 114 mmHg BP Diastolic 74 mmHg Heart Rate 78 /min Body Temperature 99.0 F Respiratory Rate 16 /min Height 64 inches 5'4" Weight 125.38 lb BMI (Body Mass Index) 21.5 kg/m2 01/15/2015 6:28pm BP Systolic 110 mmHg BP Diastolic 70 mmHg Heart Rate 68 /min Body Temperature 99.0 F Respiratory Rate 18 /min Height 64 inches 5'4" Weight 123.50 lb BMI (Body Mass Index) 21.2 kg/m2 11/27/2014 3:49pm BP Systolic 124 mmHg BP Diastolic 80 mmHg Heart Rate 74 /min Body Temperature 98.3 F Respiratory Rate 16 /min Height 64 inches 5'4" Weight 124.00 lb BMI (Body Mass Index) 21.3 kg/m2 09/18/2014 6:06pm BP Systolic 110 mmHg BP Diastolic 68 mmHg Heart Rate 68 /min Body Temperature 99.0 F Respiratory Rate 16 /min Height 64 inches 5'4" Weight 128.00 lb BMI (Body Mass Index) 22.0 kg/m2 07/17/2014 5:43pm BP Systolic 120 mmHg BP Diastolic 78 mmHg Heart Rate 88 /min Body Temperature 98.7 F Respiratory Rate 16 /min Height 64 inches 5'4" Weight 121.00 lb BMI (Body Mass Index) 20.8 kg/m2 06/05/2014 6:10pm BP Systolic 110 mmHg BP Diastolic 78 mmHg Heart Rate 80 /min Body Temperature 98.8 F Respiratory Rate 16 /min Height 64 inches 5'4" Weight 108.25 lb BMI (Body Mass Index) 18.6 kg/m2 05/15/2014 6:00pm BP Systolic 120 mmHg BP Diastolic 80 mmHg Heart Rate 76 /min Body Temperature 98.5 F Respiratory Rate 18 /min Height 64 inches 5'4" Weight 108.00 lb BMI (Body Mass Index) 18.5 kg/m2 05/01/2014 5:59pm BP Systolic 110 mmHg BP Diastolic 80 mmHg Heart Rate 68 /min Body Temperature 98.8 F Respiratory Rate 16 /min Height 64 inches 5'4" Weight 105.50 lb BMI (Body Mass Index) 18.1 kg/m2 04/14/2014 9:19am BP Systolic 102 mmHg BP Diastolic 82 mmHg Heart Rate 66 /min Body Temperature 97.2 F Respiratory Rate 14 /min Height 64 inches 5'4" Weight 99.38 lb BMI (Body Mass Index) 17.1 kg/m2 04/03/2014 6:57pm BP Systolic 110 mmHg BP Diastolic 78 mmHg Heart Rate 68 /min Body Temperature 98.8 F Respiratory Rate 16 /min Height 64 inches 5'4" Weight 100.00 lb BMI (Body Mass Index) 17.2 kg/m2 02/03/2014 12:57pm BP Systolic 120 mmHg BP Diastolic 70 mmHg Heart Rate 80 /min Body Temperature 98.6 F Respiratory Rate 18 /min Height 64 inches 5'4" Weight 104.00 lb BMI (Body Mass Index) 17.8 kg/m2 12/01/2013 1:03pm BP Systolic 110 mmHg BP Diastolic 70 mmHg Heart Rate 76 /min Body Temperature 97.8 F Respiratory Rate 16 /min Height 64 inches 5'4" Weight 103.38 lb BMI (Body Mass Index) 17.7 kg/m2 10/27/2013 1:01pm BP Systolic 112 mmHg BP Diastolic 70 mmHg Heart Rate 68 /min Body Temperature 97.6 F Respiratory Rate 16 /min Height 64 inches 5'4" Weight 105.00 lb BMI (Body Mass Index) 18.0 kg/m2 10/10/2013 10:05am BP Systolic 130 mmHg BP Diastolic 110 mmHg BP Systolic Recheck 124 mmHg BP Diastolic Recheck 100 mmHg Heart Rate 88 /min Body Temperature 98.7 F Height 64 inches 5'4" Weight 107.00 lb BMI (Body Mass Index) 18.4 kg/m2 10/06/2013 1:04pm BP Systolic 118 mmHg BP Diastolic 70 mmHg Heart Rate 76 /min Body Temperature 97.7 F Respiratory Rate 16 /min Height 64 inches 5'4" Weight 108.00 lb BMI (Body Mass Index) 18.5 kg/m2 09/29/2013 1:25pm BP Systolic 148 mmHg BP Diastolic 100 mmHg Heart Rate 88 /min Body Temperature 98.0 F Respiratory Rate 16 /min Height 64 inches 5'4" Weight 108.00 lb BMI (Body Mass Index) 18.5 kg/m2 09/15/2013 3:48pm BP Systolic 130 mmHg BP Diastolic 90 mmHg Heart Rate 70 /min Body Temperature 98.8 F Respiratory Rate 14 /min Height 64 inches 5'4" Weight 108.00 lb BMI (Body Mass Index) 18.5 kg/m2 08/26/2013 1:43pm BP Systolic 118 mmHg BP Diastolic 70 mmHg Heart Rate 84 /min Body Temperature 98.2 F Respiratory Rate 16 /min Height 64 inches 5'4" Weight 106.00 lb BMI (Body Mass Index) 18.2 kg/m2 08/04/2013 1:05pm BP Systolic 122 mmHg BP Diastolic 70 mmHg Heart Rate 60 /min Body Temperature 96.6 F Respiratory Rate 18 /min Height 64 inches 5'4" Weight 106.00 lb BMI (Body Mass Index) 18.2 kg/m2 Results Test Date Facility Test Result H/L Range Note Flu A&B ([facility]) 07/05/2018 [facility] Influenza A neg (607)- - Influenza B neg CBC Electronic [facility] 07/05/2018 Amadou Kesha([facility]) WBC 11.1 x10^3/UL High 4.0-10.0 RBC 4.74 x10^6/UL 3.93-6.00 HGB 12.4 g/dL 12.0-17.0 HCT 38 % 35-50 MCV 79.3 fL Low 80.0-95.0 MCH 26.2 pg 25.6-32.2 MCHC 33.0 g/dL 32.2-36.0 RDW-CV 15.0 % High 11.6-14.4 PLT 465 x10^3/UL High 163-400 MPV 9.5 fL 9.4-12.4 Hel[place]# 7.62 x10^3/UL High 1.56-6.13 Lymph# 2.69 x10^3/UL 1.18-3.74 Cottle# 0.58 x10^3/UL 0.24-0.82 Eos # 0.2 x10^3/UL 0.0-0.5 Baso # 0.04 x10^3/UL 0.01-0.08 [place]% 68.5 % 34.0-70.0 Lymph % 24.2 % 20.0-52.0 Cottle% 5.2 % 5.0-12.0 Eos% 1.5 % 0.7-7.0 Baso% 0.4 % 0.1-1.2 Comprehensive Metabolic 07/05/2018 Amadou Kesha([facility]) Sodium 139 mEq/L 134-149 Prof Potassium 4.4 mEq/L 3.6-5.5 Chloride 102 mEq/L 94-112 Carbon Dioxide 26 mEq/L 21-32 Glucose 104 mg/dL 70-105 BUN 16 mg/dL 6-26 Creatinine 0.6 mg/dL 0.6-1.4 BUN/Creat Ratio 26.7 CALC 8.0-36.0 Calcium 9.8 mg/dL 8.6-10.2 Total Protein 7.7 g/dL 6.4-8.3 Albumin 4.8 g/dL 3.8-5.5 Globulin 2.9 g/dL 2.0-4.8 A/G Ratio 1.7 CALC 0.6-2.3 Alk. Phosphatase 55 U/L 30-110 Alt (SGPT) 12 U/L 7-35 Ast (Sgot) 7 U/L 5-34 Total Bilirubin 0.3 mg/dL 0.2-1.3 GFR Non- >60 ml/min/1.73m^ >=60 GFR >60 ml/min/1.73m^ >=60 Laboratory test finding 07/05/2018 [facility] Reactive Protein 4.56 mg/L N < 8.01 1 Inr/Protime 06/29/2018 [facility] Inr 0.96 N 0.77-1.02 Laboratory test finding 06/29/2018 [facility] Partial Thrombo Time 31.3 seconds N 26.0-36.3 PTT Lactic Acid 0.8 mmol/L N 0.5-2.0 2 Comp Metabolic Panel 06/29/2018 [facility] Sodium 139 mmol/L N 135-145 Potassium 4.1 mmol/L N 3.5-5.0 Chloride 104 mmol/L N 101-111 Co2 Carbon Dioxide 26 mmol/L N 22-32 Anion Gap 9 mmol/L N 2-11 Glucose 86 mg/dL N 70-100 Blood Urea Nitrogen 11 mg/dL N 6-24 Creatinine 0.62 mg/dL N 0.51-0.95 BUN/Creatinine Ratio 17.7 N 8-20 Calcium 8.7 mg/dL N 8.6-10.3 Total Protein 6.6 g/dL N 6.4-8.9 Albumin 4.1 g/dL N 3.2-5.2 Globulin 2.5 g/dL N 2-4 Albumin/Globulin Ratio 1.6 N 1-3 Total Bilirubin 0.20 mg/dL N 0.2-1.0 Alkaline Phosphatase 48 U/L N 34-104 Alt 14 U/L N 7-52 Ast 15 U/L N 13-39 Egfr Non- 109.5 >60 Egfr 132.5 >60 3 Laboratory test finding 06/29/2018 [facility] Troponin I 0.00 ng/mL <0.04 4 CBC Auto Diff 06/29/2018 [facility] White Blood Count 6.9 10^3/uL N 3.5-10.8 Red Blood Count 4.24 10^6/uL N 4.00-5.40 Hemoglobin 11.1 g/dL Low 12.0-16.0 Hematocrit 34 % Low 35-47 Mean Corpuscular Volume 80 fL N 80-97 Mean Corpuscular Hemoglobin 26 pg Low 27-31 Mean Corpuscular HGB Conc 33 g/dL N 31-36 Red Cell Distribution Width 17 % High 10.5-15 Platelet Count 306 10^3/uL N 150-450 Mean Platelet Volume 8.0 fL N 7.4-10.4 Abs Neutrophils 4.4 10^3/uL N 1.5-7.7 Abs Lymphocytes 1.4 10^3/uL N 1.0-4.8 Abs Monocytes 0.6 10^3/uL N 0-0.8 Abs Eosinophils 0.4 10^3/uL N 0-0.6 Abs Basophils 0.1 10^3/uL N 0-0.2 Abs Nucleated RBC 0 10^3/uL Granulocyte % 63.6 % Lymphocyte % 20.9 % Monocyte % 8.9 % Eosinophil % 5.6 % Basophil % 1.0 % Nucleated Red Blood Cells % 0.1 Laboratory test finding 06/29/2018 [facility] Erythrocyte Sed Rate 10 mm/Hr N 0- 20 5 Blood Culture SEE RESULT BELOW 6 Rapid Influenza A & B 06/29/2018 [facility] Influenza A Molecular NEGATIVE Negative 7 Molecular Influenza B Molecular NEGATIVE Negative Laboratory test 06/29/2018 [facility] Rapid Influenza SEE RESULT 8 finding A & B Antigen BELOW Laboratory test 12/14/2017 Tobar Kesha(fma) Vitamin B-12 283 pg/mL 230-105 finding 0 Free T4 0.84 ng/dL 0.75-1.54 Free T3 2.34 pg/mL 2.00-4.90 TSH 1.63 mIU/L 0.50-6.00 Comprehensive Metabolic 12/14/2017 Tobar Kesha(fma) Sodium 138 mEq/L 134-149 Prof Potassium 4.2 mEq/L 3.6-5.5 Chloride 102 mEq/L 94-112 Carbon Dioxide 31 mEq/L 21-32 Glucose 89 mg/dL 70-105 BUN 18 mg/dL 6-26 Creatinine 0.8 mg/dL 0.6-1.4 BUN/Creat Ratio 22.5 CALC 8.0-36.0 Calcium 9.6 mg/dL 8.6-10.2 Total Protein 6.9 g/dL 6.4-8.3 Albumin 4.6 g/dL 3.8-5.5 Globulin 2.3 g/dL 2.0-4.8 A/G Ratio 2.0 CALC 0.6-2.3 Alk. Phosphatase 46 U/L 30-110 Alt (SGPT) 8 U/L 7-35 Ast (Sgot) 10 U/L 5-34 Total Bilirubin 0.2 mg/dL 0.2-1.3 GFR Non- >60 ml/min/1.73m^ >=60 GFR >60 ml/min/1.73m^ >=60 CBC Electronic (Fma New) 12/14/2017 [facility] WBC 8.26 4.0-10.0 (607)- - RBC 4.27 3.93-6.0 Hemoglobin (Fma/CMC/CTX) 11.4 g/dL Low 12.0-17.0 Hematocrit (Fma/CMC/CTX) 35.0 % 35.0-50.0 Mean Corpuscular Vol 82.0 fL 80-95 Mean Corpuscular Hemoglobin 26.7 pg 25.6-32.2 Mean Corpuscular Hemo Concen 32.6 g/dL 32.2-36.0 Platelets 364 10^3/ul 163-400 RDW-CV 16.0 High 11.6-14.4 Mean Platelet Volume 10.4 fL 8.0-12.4 Absolute Neutrophils BLD 4.65 1.56-6.13 Absolute Lymphocytes 2.90 1.18-3.74 Absolute Monocytes BLD Auto 0.42 0.24-0.82 Absolute Eos Blood 0.22 0.04-0.54 Absolute Basophils 0.06 0.01-0.08 Neutrophil % 56.3 % 34.0-70.0 Lymph% 35.1 % 20.0-52.0 Monocytes % 5.1 % 5.0-12.0 Eos % 2.7 % 0.7-7.0 Basophil% 0.7 % 0-1.2 Mitesh Panel-LD 12/14/2017 [facility] Anti-dsDNA <1 IU/mL 0-9 9, 10 ([facility]) [address] [place] [address] [place] [address] ([phone])- - Hla B 27 Disease Association Negative 11 Laboratory test 12/14/2017 [facility] Folate (Folic 7.4 ng/mL >3.0 [address] [place] [address] Acid), [place] [address] ([phone])- - Antiextractable 12/14/2017 [facility] FORENSIC AUDIT EXPERT Antibodies <0.2 AI 0.0-0.9 [address]igens [address] [place] [phone])- - Klein Antibodies <0.2 AI 0.0-0.9 Rheumatoid 12/14/2017 [facility] Ra Latex <10.0 IU/mL 0.0-13.9 Arthritis Factor [address] [place] [address] [facility]. ([facility]) [place] [address] [phone])- - Sjogren's AB, 12/14/2017 [facility] Sjogren's <0.2 AI 0.0-0.9 Anti-SS-A/-SS-B [address] [place] [address] [place] [address] ([phone])- - Sjogren's Anti-SS-B <0.2 AI 0.0-0.9 Antinuclear 12/14/2017 [facility] Antinuclear Positive Abnormal 13 Antibodies, Ifa [address] [place] [address] Antibodies, [place] [address] (605)- - Homogeneous Pattern 1:80 Nucleolar Pattern TNP Speckled Pattern TNP Centromere Pattern TNP Spindle Apparatus Pattern TNP Nuclear Membrane Pattern TNP Midbody Pattern TNP Nuclear Dot Pattern TNP Pcna Pattern TNP Centriole Pattern TNP Note: See Comment: 14 Laboratory test finding 06/30/2017 [facility] Ferritin 39.5 ng/mL N 11-307 Procalcitonin < 0.1 ng/mL <0.6 15 Iron & Iron Binding 06/30/2017 [facility] Total Iron Binding 340 g/dL N 250- 450 Capacity Capacity Transferrin 243 mg/dL N 203-362 Iron < 15 g/dL Low 50-212 Unsaturated Iron Binding 325.28259 g/dL % Iron Saturation 4 % Low 15-55 Retic Count 06/30/2017 [facility] Retic Count 0.7 % N 0.5-1.5 Corrected Retic Count 0.5 % N 0.5-1.5 Maturation Factor Retic 1.5 Retic Index 0.30 Mean Retic Volume 92.1 Immature Retic Fraction 0.38 RBC Retic Count 4.10 10^6/uL Low 4.6-6.2 Hematocrit for Retic CNT 33 % Low 35-47 Laboratory test finding 06/30/2017 [facility] Reactive Protein 137.84 mg/L High < 5.00 16 HCG < 0.60 mIU/mL 17 Comp Metabolic Panel 06/30/2017 [facility] Sodium 135 mmol/L N 133-145 Potassium 3.2 mmol/L Low 3.5-5.0 Chloride 103 mmol/L N 101-111 Co2 Carbon Dioxide 27 mmol/L N 22-32 Anion Gap 5 mmol/L N 2-11 Glucose 99 mg/dL N 70-100 Blood Urea Nitrogen 16 mg/dL N 6-24 Creatinine 0.58 mg/dL N 0.51-0.95 BUN/Creatinine Ratio 27.6 High 8-20 Calcium 9.2 mg/dL N 8.6-10.3 Total Protein 8.2 g/dL N 6.4-8.9 Albumin 3.6 g/dL N 3.2-5.2 Globulin 4.6 g/dL High 2-4 Albumin/Globulin Ratio 0.8 Low 1-3 Total Bilirubin 0.20 mg/dL N 0.2-1.0 Alkaline Phosphatase 68 U/L N 34-104 Alt 9 U/L N 7-52 Ast 8 U/L Low 13-39 Egfr Non- 119.0 >60 Egfr 153.0 >60 18 Laboratory test 06/30/2017 [facility] Lactic Acid 0.9 mmol/L N 0.5-2.0 19 finding CBC Auto Diff 06/30/2017 [facility] White Blood Count 16.5 10^3/uL High 3.5- 10.8 Red Blood Count 4.02 10^6/uL N 4.0-5.4 Hemoglobin 10.5 g/dL Low 12.0-16.0 Hematocrit 32 % Low 35-47 Mean Corpuscular Volume 79 fL Low 80-97 Mean Corpuscular Hemoglobin 26 pg Low 27-31 Mean Corpuscular HGB Conc 33 g/dL N 31-36 Red Cell Distribution Width 16 % High 10.5-15 Platelet Count 453 10^3/uL High 150-450 Mean Platelet Volume 8 um3 N 7.4-10.4 Abs Neutrophils 14.5 10^3/uL High 1.5-7.7 Abs Lymphocytes 1.2 10^3/uL N 1.0-4.8 Abs Monocytes 0.7 10^3/uL N 0-0.8 Abs Eosinophils 0.1 10^3/uL N 0-0.6 Abs Basophils 0 10^3/uL N 0-0.2 Abs Nucleated RBC 0 10^3/uL Granulocyte % 87.7 % High 38-83 Lymphocyte % 7.2 % Low 25-47 Monocyte % 4.5 % N 0-7 Eosinophil % 0.4 % N 0-6 Basophil % 0.2 % N 0-2 Nucleated Red Blood Cells % 0 Laboratory test 06/30/2017 [facility] Urine Culture And SEE RESULT BELOW 20 finding Sensitivities Urinalysis Profile 06/30/2017 [facility] Urine Color Yellow Urine Appearance Clear Urine Specific [place] 1.028 N 1.010-1.030 Urine pH 5.0 N 5-9 Urine Urobilinogen Negative Negative Urine Ketones Negative Negative Urine Protein 1+(30 mg/dL) Abnormal Negative Urine Leukocytes Negative Negative Urine Blood 2+ Abnormal Negative Urine Nitrite Negative Negative Urine Bilirubin Negative Negative Urine Glucose Negative Negative Urine White Blood Cell Trace(0-5/hpf) Absent Urine Red Blood Cell 3+(>10/hpf) Abnormal Absent Urine Bacteria 1+ Abnormal Absent Laboratory test 06/30/2017 [facility] Rapid Influenza A & SEE RESULT BELOW 21 finding B Antigen Rapid Influenza A & 06/30/2017 [facility] Influenza A NEGATIVE Negative 22 B Molecular Molecular Influenza B Molecular NEGATIVE Negative Laboratory test finding 07/27/2015 [facility] HPV Rna Ww/Reflex Negative N Negative 23 Genotype Cytology SEE RESULT BELOW 24 Ua - Micro (Fma) 07/13/2015 [facility] Appearance CLOUDY (607)- - Color YELLOW Glucose, Urine (a/[facility]/CTX) NEG Bilirubin NEG Ketones NEG SP Grav 1.020 Blood TRACE-INTACT # PH 7.5 Protein NEG Urobil 1.0 Nitrite NEG Leukocytes (a/[facility]) SMALL # Hyaline - /Lpf Granular - /Lpf WBC (a,[facility]) 40-45 # RBC 5-7 # Mucus - /Lpf Epith RARE /Lpf # Bacteria 1+ /Hpf # Amorphous LARGE AMOUNT /Lpf # Crystals, Fluid (Fma/CMC/CTX) - Z#Comments - Laboratory test finding 04/30/2015 [facility] Acetaminophen < 15 g/mL N 25 Alcohol < 10 mg/dL N <10 Salicylate < 2.50 mg/dL N <30 TSH (Thyroid Stim Horm) 1.12 ?IU/mL N 0.34-5.60 Valproic Acid 67.0 g/mL N 50-100 Comp Metabolic Panel 04/30/2015 [facility] Sodium 139 mmol/L N 133-145 Potassium 3.7 mmol/L N 3.5-5.0 Chloride 105 mmol/L N 101-111 Co2 Carbon Dioxide 29 mmol/L N 22-32 Anion Gap 5 mmol/L N 2-11 Glucose 89 mg/dL N 70-100 Blood Urea Nitrogen 12 mg/dL N 6-24 Creatinine 0.70 mg/dL N 0.51-0.95 BUN/Creatinine Ratio 17.1 N 8-20 Calcium 9.0 mg/dL N 8.6-10.3 Total Protein 7.2 g/dL N 6.4-8.9 Albumin 4.5 g/dL N 3.2-5.2 Globulin 2.7 g/dL N 2-4 Albumin/Globulin Ratio 1.7 N 1-3 Total Bilirubin 0.20 mg/dL N 0.2-1.0 Alkaline Phosphatase 33 U/L Low 34-104 Alt 6 U/L Low 7-52 Ast 9 U/L Low 13-39 Egfr Non- 97.6 N >60 Egfr 125.5 N >60 26 Urine Drug SCR ED 04/30/2015 [facility] Amphetamine Ur Screen None Detected N None Detect & [facility] Barbiturates Urine Screen None Detected N None Detect Benzodiazepine Urine Screen None Detected N None Detect Urine Cannabinoids Screen Presumptive Posi <SEE NOTE> Abnormal None Detect 27 Urine Cocaine Screen None Detected N None Detect Urine Opiates Screen None Detected N None Detect Urine Phencyclidine Screen None Detected N None Detect 28 Urinalysis Profile 04/30/2015 [facility] Urine Color Yellow N Urine Appearance Cloudy N Urine Specific [place] 1.014 N 1.010-1.030 Urine pH 7.0 N 5-9 Urine Urobilinogen Negative N Negative Urine Ketones Negative N Negative Urine Protein Negative N Negative Urine Leukocytes Negative N Negative Urine Blood Negative N Negative Urine Nitrite Negative N Negative Urine Bilirubin Negative N Negative Urine Glucose Negative N Negative CBC Auto Diff 04/30/2015 [facility] White Blood Count 6.9 10^3/uL N 3.5-10.8 Red Blood Count 4.42 10^6/uL N 4.0-5.4 Hemoglobin 12.6 g/dL N 12.0-16.0 Hematocrit 39 % N 35-47 Mean Corpuscular Volume 89 fL N 80-97 Mean Corpuscular Hemoglobin 28 pg N 27-31 Mean Corpuscular HGB Conc 32 g/dL N 31-36 Red Cell Distribution Width 14 % N 10.5-15 Platelet Count 225 10^3/uL N 150-450 Mean Platelet Volume 9 um3 N 7.4-10.4 Abs Neutrophils 3.7 10^3/uL N 1.5-7.7 Abs Lymphocytes 2.4 10^3/uL N 1.0-4.8 Abs Monocytes 0.5 10^3/uL N 0-0.8 Abs Eosinophils 0.3 10^3/uL N 0-0.6 Abs Basophils 0.1 10^3/uL N 0-0.2 Abs Nucleated RBC 0.01 10^3/uL N Granulocyte % 53.5 % N 38-83 Lymphocyte % 35.0 % N 25-47 Monocyte % 6.8 % N 1-9 Eosinophil % 3.8 % N 0-6 Basophil % 0.9 % N 0-2 Nucleated Red Blood Cells % 0.1 N Laboratory test 04/13/2015 [facility] Urine Culture And SEE RESULT 29 finding Sensitivities BELOW Ua - Micro (a) 03/22/2015 [facility] Appearance SLT CLOUDY # (607)- - Color YELLOW Glucose, Urine (a/[facility]/CTX) NEG Bilirubin NEG Ketones NEG SP Grav 1.020 Blood NEG PH 7.0 Protein NEG Urobil 0.2 Nitrite NEG Leukocytes ([facility]) SMALL # WBC (a,[facility]) 15-20 # RBC 5-10 # Epith FEW /Lpf # Bacteria 2+ /Hpf # Urine Culture 03/22/2015 [facility] Urine Culture, Final report 30, 31 Routine [address] [place] [address] (607)- - Result 1 No growth 32 Laboratory 03/05/2015 [facility] Rapid Strep POSITIVE Abnormal Negative 33 test finding Molecular Laboratory 05/01/2014 [facility] Valproic Acid 20.5 ug/ml Low 50.0-100.0 34 , test finding [address] [place] [address] [address] [place] [address] [phone] Laboratory 02/03/2014 [facility] Vitamin B-12 308 pg/mL 36, test finding [address] [place] [address] 37 [place] [address] [phone] Mitesh Panel--LD 02/03/2014 [facility] Antinuclear Negative 38 (Ctx) 28 [facility] Abs, [place] [address] [phone] Rheumatoid Arth Factor 7.0 IU/mL 0.0-13.9 Anti Dsdna Antibodies <1 IU/mL 0-9 39 Hla B27 Disease Assoc. Negative 40 Antiextractable 02/03/2014 [facility] [employer] EX[employer]ERT Antibodies <0.2 AI 0.0-0.[address] [place] [phone] Klein Antibodies <0.2 AI 0.0-0.9 Babesia Microti 02/03/2014 [facility] Babesia microti <1:10 Neg:<1:10 AB PNL [address] [place] [address] [place] [address] [phone] Babesia microti IgG <1:10 Neg:<1:10 41 Ehrlichia AB 02/03/2014 [facility] E. chaffeensis Negative Neg:<1:64 Panel (CTX) [address] [place] [address] ([facility]) [place] [address] [phone] E. chaffeensis ([facility]) IgM Titer Negative Neg:<1:20 42 Hge IgG Titer Negative Neg:<1:64 43 Hge IgM Titer Negative Neg:<1:20 44 Lyme Igg/M 02/03/2014 [facility] Lyme IgG/IgM <0.91 ISR 0.00-0.90 45 W/RFX West [address] [place] [address] [place] [address] [phone] Lyme Disease Ab, Quant, IgM <0.80 index 0.00-0.79 46 Ebv Acute 02/03/2014 [facility] Ebv Ab Vca, <36.0 U/mL 0.0-35.9 47 Infection Abs 28 [facility] [place] [address] [phone] Ebv Early Antigen Ab, IgG <9.0 U/mL 0.0-8.9 48 Ebv Ab Vca, IgG 460.0 U/mL High 0.0-17.9 49 Ebv Nuclear Antigen Ab, IgG <18.0 U/mL 0.0-17.9 50 Interpretation: SEE NOTE 51 Laboratory test 02/03/2014 [facility] T-4 Free 0.9 ng/dL 0.8-1.[address] [place] [address] [phone] Triiodothyronine,Free,Ser 2.8 pg/mL 2.0-4.4 TSH (Thyrotropin) 0.360 uIU/ml 0.350-5.500 Vitamin D, 25 Oh 21.7 ng/mL Low 30.0-100.0 52 Comprehensive Metabolic 02/03/2014 [facility] Glucose 75 mg/dL 70-[address] [place] [address] [phone] BUN 14 mg/dL 4-18 Creatinine, Serum 0.47 mg/dL Low 0.50-1.10 Sodium 141 mmol/L 136-146 Potassium 4.4 mmol/L 3.5-5.3 Chloride 106 mmol/L 98-110 Carbon Dioxide 28 mmol/L 20-32 Albumin 4.6 g/dL 3.5-4.7 Protein, Total 7.3 g/dL 6.4-8.3 Calcium 9.2 mg/dL 8.4-10.4 Alkaline Phosphatase 64 U/L 10-118 Sgot (Ast) 15 U/L 3-40 SGPT (Alt) 22 U/L 7-50 Bilirubin, Total 0.10 mg/dL Low 0.30-1.20 CBC 02/03/2014 [facility] WBC 7.0 x10E3/uL 4.3-10.[address] [place] [address] [phone] RBC 4.34 x10E6/uL 3.80-5.30 Hemoglobin 11.9 g/dL 11.8-15.8 Hematocrit 38.3 % 35.0-47.0 MCV 88.2 fl 82.0-98.0 MCH 27.4 pg Low 27.5-33.5 MCHC 31.1 g/dL Low 32.0-36.0 RDW 15.0 % High 11.5-14.5 Platelet Count 329 x10E3/uL 130-400 MPV 11.9 fl 8.6-12.6 Segmented Neutrophils 59.2 % 44.0-74.0 Lymphocytes 32.5 % 15.0-45.0 Monocytes 3.1 % 2.0-13.0 Eosinophils 4.8 % 0.0-6.0 Basophils 0.4 % 0.0-2.0 Neutrophil Absolute 4.1 x10E3/uL 1.4-7.0 Lymphocytes Absolute 2.3 x10E3/uL 1.0-3.4 Monocyte Absolute 0.2 x10E3/uL 0.2-1.0 Eosinophil Absolute 0.3 x10E3/uL 0.0-0.5 Basophil Absolute 0.0 x10E3/uL 0.0-0.2 Egfr (Calculated) 02/03/2014 [facility] Estimated GFR (CALCULATED) 28 [place] [address] [phone] Egfr >60 53 Egfr, -[place] >60 54 Sjogren's AB Anti 02/03/2014 [facility] Sjogren's <0.2 AI 0.0-0.9 Ssa/SSB 28 [facility] [place] [address] [phone] Sjogren's Anti-SS-B <0.2 AI 0.0-0.9 CBC Auto Diff 11/27/2013 [facility] White Blood Count 5.6 10^3/uL 4.8-10.8 Red Blood Count 4.45 10^6/uL 4.0-5.4 Hemoglobin 12.3 g/dL 12.0-16.0 Hematocrit 37 % 35-47 Mean Corpuscular Volume 83 fL 80-97 Mean Corpuscular Hemoglobin 28 pg 27-31 Mean Corpuscular HGB Conc 33 g/dL 31-36 Red Cell Distribution Width 16 % High 10.5-15 Platelet Count 253 10^3/uL 150-450 Mean Platelet Volume 9 um3 7.4-10.4 Abs Neutrophils 3.0 10^3/uL 1.5-7.7 Abs Lymphocytes 2.0 10^3/uL 1.0-4.8 Abs Monocytes 0.4 10^3/uL 0-0.8 Abs Eosinophils 0.2 10^3/uL 0-0.6 Abs Basophils 0.1 10^3/uL 0-0.2 Abs Nucleated RBC 0 10^3/uL Granulocyte % 52.7 % 38-83 Lymphocyte % 34.8 % 25-47 Monocyte % 8.0 % 1-9 Eosinophil % 3.6 % 0-6 Basophil % 0.9 % 0-2 Nucleated Red Blood Cells % 0.1 Urinalysis Profile 11/27/2013 [facility] Urine Color Yellow Urine Appearance Clear Urine Specific [place] 1.016 1.010-1.030 Urine pH 7.0 5-9 Urine Urobilinogen Negative Negative Urine Ketones Negative Negative Urine Protein Negative Negative Urine Leukocytes Negative Negative Urine Blood Negative Negative Urine Nitrite Negative Negative Urine Bilirubin Negative Negative Urine Glucose Negative Negative Comp Metabolic Panel 11/27/2013 [facility] Sodium 139 mmol/L 133-145 Potassium 3.6 mmol/L Low 3.7-5.6 Chloride 102 mmol/L 101-111 Co2 Carbon Dioxide 31 mmol/L 22-32 Anion Gap 6 mmol/L 2-11 Glucose 65 mg/dL Low 70-100 Blood Urea Nitrogen 8 mg/dL 6-24 Creatinine 0.71 mg/dL 0.51-0.95 BUN/Creatinine Ratio 11.3 8-20 Calcium 9.0 mg/dL 8.6-10.3 Total Protein 7.2 g/dL 6.4-8.9 Albumin 4.5 g/dL 3.2-5.2 Globulin 2.7 g/dL 2-4 Albumin/Globulin Ratio 1.7 1-3 Total Bilirubin 0.20 mg/dL 0.2-1.0 Alkaline Phosphatase 53 U/L 34-104 Alt 12 U/L 7-52 Ast 11 U/L Low 13-39 Egfr Non- 96.7 >60 Egfr 124.3 >60 55 Laboratory test finding 11/27/2013 [facility] Magnesium 1.9 mg/dL 1.9-2.7 Lipase 26 U/L 11.0-82.0 Creatine Kinase 68 U/L 10-223 TSH (Thyroid Stimulating Horm) 0.92 IU/mL 0.34-5.60 C Reactive Protein < 0.10 mg/L < 5.00 56 Comprehensive Metabolic 08/04/2013 Amadou Rebolledo(a) Sodium 136 mEq/L 134-149 Prof Potassium 3.4 mEq/L Low 3.6-5.5 57 Chloride 95 mEq/L 94-112 Carbon Dioxide 26 mEq/L 21-32 Glucose 101 mg/dL 70-105 BUN 17 mg/dL 6-26 Creatinine 0.8 mg/dL 0.6-1.4 BUN/Creat Ratio 21.3 CALC 8.0-36.0 Calcium 9.2 mg/dL 8.6-10.2 Total Protein 7.7 g/dL 6.3-8.1 Albumin 5.0 g/dL 3.8-5.5 Globulin 2.7 g/dL 2.0-4.8 A/G Ratio 1.9 CALC 0.6-2.3 Alk. Phosphatase 67 U/L 30-110 Alt (SGPT) 13 U/L 7-35 Ast (Sgot) 14 U/L 5-34 Total Bilirubin 0.2 mg/dL 0.2-1.3 Lipid Profile 08/04/2013 Amadou Kesha([facility]) Cholesterol 190 mg/dL 120- 200 Triglycerides 124 mg/dL 30-200 HDL Cholesterol 52 mg/dL 30-85 LDL (Calculated) 113 CALC 0-129 VLDL Cholesterol 25 mg/dL 0-50 HDL Risk Factor 3.7 CALC 0.0-4.4 Laboratory test finding 08/04/2013 Amadou Kesha([facility]) Vitamin D25 30 30 -100 TSH 0.63 mIU/L 0.50-6.00 Complete Blood Count 08/04/2013 Amadou Kesha([facility]) WBC 5.6 x10^3/UL 3.6 -9.6 RBC 4.38 x10^6/UL 3.90-5.70 HGB 11.9 g/dL Low 12.1-17.2 HCT 37 % 36-50 MCV 84.0 fL 82.2-97.4 MCH 27.2 pg Low 27.6-33.3 MCHC 32.3 g/dL Low 33.0-35.5 RDW 12.8 % 11.6-13.7 PLT 355 x10^3/UL 150-400 MPV 7.8 fL 7.4-10.4 Gran # 2.9 x10^3/UL 1.5-7.2 Lymph# 2.5 x10^3/UL 0.7-4.9 Cottle# 0.2 x10^3/UL 0.1-0.9 Gran % 50.7 % 42.2-75.2 Lymph % 45.1 % 20.5-51.1 Cottle% 4.2 % 1.7-9.3 Ua - Non Micro (Fma) 08/04/2013 [facility] Appearance CLEAR (607)- - Color YELLOW Glucose, Urine (Fma/CMC/CTX) NEG Bilirubin NEG Ketones NEG SP Grav 1.025 Blood NEG PH 5.5 Protein NEG Urobil 0.2 Nitrite NEG Leukocytes ([facility]) NEG 1 [id number] 1 sst 2 [place] Severe Sepsis and Septic Shock Management Bundle Measure requires all lactic acids initially measuring >2.0 mmol/L be repeated. 3 Because ethnic data is not always readily available, this report includes an eGFR for both -Americans and non- Americans. The National Kidney Disease Education Program (NKDEP) does not endorse the use of the MDRD equation for patients that are not between the ages of 18 and 70, are , have extremes of body size, muscle mass, or nutritional status, or are non- or non-. According to the National Kidney Foundation, irrespective of diagnosis, the stage of the disease is based on the level of kidney function: Stage Description GFR(mL/min/1.73 m(2)) 1 Kidney damage with normal or decreased GFR 90 2 Kidney damage with mild decrease in GFR 60-89 3 Moderate decrease in GFR 30-59 4 Severe decrease in GFR 15-29 5 Kidney failure <15 (or dialysis) 4 Troponin-I testing on Plasma Separator Tubes (PST) has a known false positive rate of 0.20-0.40%. All positive troponins reflex immediate secondary confirmatory testing. 5 Test Performed by: [facility] [address] [place] [id number] Braden Yi M.D. Director of Laboratory 6 SEE RESULT BELOW Name: CHELSEY POOLE : [address]: Sandra Osorio Acct: [id number] Unit: [id number] AGE: 33 Location: ED Re06/29/18 SEX: F Status: DEP ER SPEC: [id number] EDGARDO: 06/29/18 [facility] DR: Sandra Anne MD REQ: [id number] RECD: 06/29/18 STATUS: YELENA COUGHLIN DR: Ximena Fuentes ELECTROMECHANICAL ASSEMBLY TECHNICIAN _ SOURCE: BLOOD,VENO SPDESC: ORDERED: Blood Cult Procedure Result Reported Site Aerobic Culture Bottle Final 07/04/18- 1704 ML No Growth Day 5 Anaerobic Culture Bottle Final 07/04/18- 1704 ML No Growth Day 5 * ML - Main Lab . END OF REPORT DEPARTMENT OF PATHOLOGY, [address] [place] [address] Braden Yi M.D. Director [facility] # [id number] Conveyancer: [id number] SEE RESULT BELOW Name: CHELSEY POOLE : [address]: Sandra Osorio Acct: [id number] Unit: [id number] AGE: 33 Location: ED Re06/29/18 SEX: F Status: PRE ER SPEC: [id number] DEGARDO: 06/29/18-160 [facility] DR: Sandra Anne MD REQ: [id number] RECD: 06/29/18 STATUS: YELENA COUGHLIN DR: Ximena Fuentes ELECTROMECHANICAL ASSEMBLY TECHNICIAN _ SOURCE: NASAL SPDESC: ORDERED: Flu A B Request Procedure Result Reported Site Rapid Influenza A B Request Final 06/29/18- 1615 ML Specimen received for Influenza A/B Molecular testing * ML - Main Lab . END OF REPORT DEPARTMENT OF PATHOLOGY, [address] [place] [address] Braden Yi M.D. Director [facility] # [id number] 9 2 sst 10 Negative <5 Equivocal 5 - 9 Positive >9 11 HLA-B*27 Negative B27 allele interpretation for all loci based on IMGT/HLA database version 3.27 This test was developed and its performance characteristics determined by [facility]. It has not been cleared or approved by the Food and Drug Administration. [facility] CLIA ID Number [id number] This test was performed using PCR (Polymerase Chain Reaction)/SSOP (Sequence Specific Oligonucleotide Probes) technique. SBT (Sequence Based Typing) and/or SSP (Sequence Specific Primers) may be used as supplemental methods when necessary. Please contact [facility] Customer Service at if you have any questions. Director of [facility] Dr Maco Lincoln, PhD 12 A serum folate concentration of less than 3.1 ng/mL is considered to represent clinical deficiency. 13 Negative <1:80 Borderline 1:80 Positive >1:80 14 A positive MITESH result may occur in healthy individuals (low titer) or be associated with a variety of diseases. See interpretation chart which is not all inclusive: Pattern Antigen Detected Suggested Disease Association Homogeneous DNA(ds,ss), SLE - High titers Nucleosomes, Histones Drug-induced SLE Speckled Sm, FORENSIC AUDIT EXPERT, SCL-70, SLE,MCTD,PSS (diffuse form), SS-A/SS-B Sjogrens Nucleolar SCL-70, PM-1/SCL High titers Scleroderma, PM/DM Centromere Centromere PSS (limited form) w/Crest syndrome variable Nuclear Dot Sp100,[id number] Primary Biliary Cirrhosis Nuclear GP210, Primary Biliary Cirrhosis Membrane leonard A,B,C 15 Interpretive information available on [employer] Test Catalog at [email or web address] 16 Acute inflammation: >10.00 17 <5.0 Negative 5.0 - 25.0 Indeterminate (Repeat testing recommended after 72 hours) >25.0 Positive Perimenopausal women can display HCG levels of up to 20 mIU/mL 18 Because ethnic data is not always readily available, this report includes an eGFR for both -Americans and non- Americans. The National Kidney Disease Education Program (NKDEP) does not endorse the use of the MDRD equation for patients that are not between the ages of 18 and 70, are , have extremes of body size, muscle mass, or nutritional status, or are non- or non-. According to the National Kidney Foundation, irrespective of diagnosis, the stage of the disease is based on the level of kidney function: Stage Description GFR(mL/min/1.73 m(2)) 1 Kidney damage with normal or decreased GFR 90 2 Kidney damage with mild decrease in GFR 60-89 3 Moderate decrease in GFR 30-59 4 Severe decrease in GFR 15-29 5 Kidney failure <15 (or dialysis) 19 [facility] Severe Sepsis and Septic Shock Management Bundle Measure requires all lactic acids initially measuring >2.0 mmol/L be repeated. 20 SEE RESULT BELOW Name: VIRGILIOCARLOSCHELSEY : [address]: Minesh Goldsmith MD Acct: [id number] Unit: [id number] AGE: 32 Location: MED 402-01 Re07/01/17 SEX: F Status: ADM IN SPEC: [id number] EDGARDO: 06/30/17 [facility] DR: Jarred Slater MD REQ: [id number] RECD: 06/30/17 STATUS: YELENA COUGHLIN DR: Ximena Fuentes ELECTROMECHANICAL ASSEMBLY TECHNICIAN _ SOURCE: URINE SPDESC: ORDERED: Urine Culture Procedure Result Reported Site Urine Culture Final 07/02/17- 0857 ML Organism 1 ESCHERICHIA COLI [place] Count 25-50,000 (Moderate) CFU/ML 1. ESCHERICHIA COLI M.I.C. RX --------- ------ Ampicillin >=32 R Cefazolin <=4 S Cefepime <=1 S Ceftriaxone <=1 S Ciprofloxacin >=4 R Gentamicin <=1 S Levofloxacin >=8 R Meropenem <=0.25 S Nitrofurantoin <=16 S Tetracycline <=1 S Pipercillin/Tazobactam <=4 S Trimethoprim/Sulfamethoxazole <=20 S Amoxicillin/Clavulanic Acid 4 S Aztreonam <=1 S Contact the Microbiology Department for any additional antibiotic reporting. * ML - Main Lab . END OF REPORT DEPARTMENT OF PATHOLOGY, [address] [place] [address] Braden Yi M.D. Director [facility] # [id number] 21 SEE RESULT BELOW Name: VIRGILIO,CHELSEY : [address]: Jarred Slater MD Acct: [id number] Unit: [id number] AGE: 32 Location: ED Re06/30/17 SEX: F Status: REG ER SPEC: [id number] EDGARDO: 06/30/17 [facility] DR: Pop Marquez MD REQ: [id number] RECD: 06/30/17 STATUS: COMP [facility] DR: Shameka Fuentes ELECTROMECHANICAL ASSEMBLY TECHNICIAN _ SOURCE: NASAL SPDESC: ORDERED: Flu A B Request Procedure Result Reported Site Rapid Influenza A B Request Final 06/30/17- 7335 ML Specimen received for Influenza A/B Molecular testing * ML - Main Lab . END OF REPORT DEPARTMENT OF PATHOLOGY, [address] [place] [address] Braden Yi M.D. Director [facility] # [id number] 22 Conveyancer: [id number] 23 The high-risk HPV types detected by the assay include: 16, 18, 31, 33, 35, 39, 45, 51, 52, 56, 58, 59, 66, and 68. 24 SEE RESULT BELOW Name: CHELSEY POOLE : [address]: Jose Perla MD Acct: [id number] Unit: [id number] AGE: 30 Location: [facility] Re07/27/15 SEX: F Status: REG REF SPEC: [id number] EDGARDO: 07/27/15-[address]: Jose Perla MD REQ: [id number] RECD: 07/27/15491 STATUS: SAE COUGHLIN DR: Ximena Fuentes ELECTROMECHANICAL ASSEMBLY TECHNICIAN _ ORDERED: IMAGE ANALYSIS, HPV/Thin Prep, HPV 16/18 GENE FINAL DIAGNOSIS Negative for Intraepithelial lesion or Malignancy A. Ectocervical/Endocervical Specimen Adequacy: Satisfactory of evaluation Transformation zone component identified Patient Information: HPV: High risk HPV RNA testing regardless of pap results. HPV 16/18 Genotype for HPV pos Actual Specimen Date: 07/27/15 Last Menstrual Date: 07/05/15 ?: N Post Menopausal?: N Hysterectomy?: N Previous Abnormal Pap Smears?:Y If Yes, enter Diagnosis: several yrs ago,WNL since Date Time Test Result Flag (u) Normal Range 07/27/15 1230 HPV RNA RFLX GE Negative Negative The high-risk HPV types detected by the assay include: 16, 18, 31, 33, 35, 39, 45, 51, 52, 56, 58, 59, 66, and 68. Signed (signature on file) DONNIE Andrews(ASCP) 07/29 1625 This Pap test was evaluated with the assistance of the [facility] Test Imaging System. Due to cytologic findings at the public health educator microscope, comprehensive manual rescreening by a Digital Watch Assembler may be required. The Pap Smear is a screening test designed to aid in the detection of premalignant and malignant conditions of the uterine cervix. It is not a diagnostic procedure and should not be used as the sole means of detecting cervical cancer. Both false- positive and false- negative reports do occur. Depending on your risk status, a Pap smear should be obtained and evaluated every 1-3 years. END OF REPORT * ML=Testing performed at Main Lab DEPARTMENT OF PATHOLOGY, [address] [place] [address] Braden Yi M.D. Director [facility] # [id number] RUN DATE: 07/30/15 [facility] LAB LIVE PAGE 1 Patient: CHELESY POOLE [id number] (Continued) 25 Therapeutic concentration: <50 ug/mL Toxic concentration: >120 ug/mL 26 Because ethnic data is not always readily available, this report includes an eGFR for both -Americans and non- Americans. The National Kidney Disease Education Program (NKDEP) does not endorse the use of the MDRD equation for patients that are not between the ages of 18 and 70, are , have extremes of body size, muscle mass, or nutritional status, or are non- or non-. According to the National Kidney Foundation, irrespective of diagnosis, the stage of the disease is based on the level of kidney function: Stage Description GFR(mL/min/1.73 m(2)) 1 Kidney damage with normal or decreased GFR 90 2 Kidney damage with mild decrease in GFR 60-89 3 Moderate decrease in GFR 30-59 4 Severe decrease in GFR 15-29 5 Kidney failure <15 (or dialysis) 27 Presumptive Positive 28 The urine specimen was tested at the listed cutoffs: Drug class test level (ng/mL) Amphetamines 500 Barbituates 200 Benzodiazepine metabolites 200 Cocaine metabolites 150 Cannabinoids 50 Opiates 300 Pcp 25 This is a screening procedure. Positive results are not confirmed. Specimen was received without chain of custody. Results should be used for medical purposes only. 29 SEE RESULT BELOW Name: CHELSEY POOLE : [address]: Opal Cardona MD Acct: [id number] Unit: [id number] AGE: 29 Location: [facility] Re04/13/15 SEX: F Status: DEP ER SPEC: [id number] EDGARDO: 04/13/15-1442 [facility] DR: Opal Cardona MD REQ: [id number] RECD: 04/14/15-1226 STATUS: YELENA COUGHLIN DR: Guadalupe Flanagan MD _ SOURCE: URINE SPDESC: ORDERED: Urine Culture Procedure Result Reported Site Urine Culture Final 04/15/15- 1315 ML No Growth (<1,000 CFU/mL) * ML - MAIN LAB ([facility]) . END OF REPORT * ML=Testing performed at Main Lab DEPARTMENT OF PATHOLOGY, [address] [place] [address] Braden Yi M.D. Director [facility] # [id number] 30 SRC:URINE 1 VACUTAINER WIT H URINE 31 Source of Specimen: URINE 1 VACUTAINER WIT 32 Source of Specimen: URINE 1 VACUTAINER WIT 33 Conveyancer: NANDINI VIGIL The burial vault deliverer and installer and regulatory agencies both recommend that a throat culture for beta strep be performed if a Rapid Group A Strep assay yields a negative result. Therefore a culture will be automatically performed on all negative samples. 34 1POUR OFF FROM Intale 35 For patients taking once-daily Divalproex-ER(extended release), a blood sample should be taken pre-dose, optimally 24 hours, (but at least 18 hours)after the previous dose to most closely approximate true Valproic Acid trough concentration. Specimens drawn less than 24 hours after the last dose may result in Valproic Acid concentrations up to 25% higher than true trough levels. 36 4 sst's; 1 yellow; 3 lav 37 Greater than or equal to 211 is normal. . 38 Negative <1:80 Borderline 1:80 Positive >1:80 39 Negative <5 Equivocal 5 - 9 Positive >9 40 HLA-B*27 Negative HLA Lab CLIA ID Number [id number] This test was performed using PCR (Polymerase Chain Reaction)/SSOP (Sequence Specific Oligonucleotide Probes) technique. SBT (Sequence Based Typing) and/or SSP (Sequence Specific Primers) may be used as supplemental methods when necessary. Please contact HLA Customer Service at if you have any questions. Director of [facility] Laboratory Dr Maco Lincoln, PhD 41 This test was developed and its performance characteristics determined by [employer]. It has not been cleared or approved by the U.S. Food and Drug Administration. The FDA has determined that such clearance or approval is not necessary. This test is used for clinical purposes. It should not be regarded as investigational or research. 42 IgG titers if 1:64 or greater indicate exposure or acute and convalescent samples showing a four-fold increase, and/or the presence of IgM indicate recent or current infection. This test was developed and its performance characteristics determined by [employer]. It has not been cleared or approved by the U.S. Food and Drug Administration. The FDA has determined that such clearance or approval is not necessary. This test is used for clinical purposes. It should not be regarded as investigational or for research. 43 HGE IgG levels are detectable 7 to 10 days post infection and persist approximately one year. This test was developed and its performance characteristics determined by [employer]. It has not been cleared or approved by the U.S. Food and Drug Administration. The FDA has determined that such clearance or approval is not necessary. This test is used for clinical purposes. It should not be regarded as investigational or for research. 44 IgM levels usually rise 3 to 5 days post infection and fall to normal levels in approximately 30 to 60 days. This test was developed and its performance characteristics determined by [employer]. It has not been cleared or approved by the U.S. Food and Drug Administration. The FDA has determined that such clearance or approval is not necessary. This test is used for clinical purposes. It should not be regarded as investigational or for research. 45 Negative <0.91 Equivocal 0.91 - 1.09 Positive >1.09 Please note reference interval change 46 Negative <0.80 Equivocal 0.80 - 1.19 Positive >1.19 IgM levels may peak at 3-6 weeks post infection, then gradually decline. 47 Negative <36.0 Equivocal 36.0 - 43.9 Positive >43.9 48 Negative < 9.0 Equivocal 9.0 - 10.9 Positive >10.9 49 Negative <18.0 Equivocal 18.0 - 21.9 Positive >21.9 50 Negative <18.0 Equivocal 18.0 - 21.9 Positive >21.9 51 EBV Interpretation Chart Interpretation EBV-IgM VCA-IgG EBNA-IgG EA(D)-IgG EBV Seronegative - - - - Early Phase + - - - Acute Primary + + - +or- Infection Convalescence/Past - + + +or- Infection Reactivated +or- + + + Infection + Antibody Present - Antibody Absent 52 Vitamin D deficiency has been defined by the Turner of Medicine and an Endocrine Society practice guideline as a level of serum 25-OH vitamin D less than 20 ng/mL (1,2). The Endocrine Society went on to further define vitamin D insufficiency as a level between 21 and 29 ng/mL (2). 1. IOM (Turner of Medicine). 2010. Dietary reference intakes for calcium and D. [place]: The National Academies Press. 2. Nancy MF, Amelia MOODY, Bob KHAN, et al. Evaluation, treatment, and prevention of vitamin D deficiency: an Endocrine Society clinical practice guideline. JCEM. 2010; 96(7):1911-30. 53 >59 mL/min/1.73m2 54 >59 mL/min/1.73m2 Note: Persistent reduction for 3 months or more in an eGFR <60 mL/min/1.73m2 defines CKD. Patients with eGFR values >=60 mL/min/1.73m2 may also have CKD if evidence of persistent proteinuria is present. Additional information may be found at www.kidney.org/professionals/kdoqi. 55 Because ethnic data is not always readily available, this report includes an eGFR for both -Americans and non- Americans. The National Kidney Disease Education Program (NKDEP) does not endorse the use of the MDRD equation for patients that are not between the ages of 18 and 70, are , have extremes of body size, muscle mass, or nutritional status, or are non- or non-. According to the National Kidney Foundation, irrespective of diagnosis, the stage of the disease is based on the level of kidney function: Stage Description GFR(mL/min/1.73 m(2)) 1 Kidney damage with normal or decreased GFR 90 2 Kidney damage with mild decrease in GFR 60-89 3 Moderate decrease in GFR 30-59 4 Severe decrease in GFR 15-29 5 Kidney failure <15 (or dialysis) 56 Acute inflammation: >10.00 57 RESULTS VERIFIED BY REPEAT ANALYSIS Procedures Date Code Description Status 07/05/2018 38571 Pulse Oximetry Completed 04/30/2016 60166 Vision Test- screening test of visual acuity, Completed quantitative, bila Encounters Type Date Location Provider Dx Diagnosis Office Visit 07/05/2018 [facility] Office Candy Brice, Agustin06.9 Acute upper 4:00p PA respiratory infection, unspecified Office Visit 03/25/2018 [facility] Ximena Alfredo, M25.541 Pain in joints of 4:15p FRUIT OR NUT FARM WORKER right hand F41.1 Generalized anxiety disorder G89.29 Other chronic pain S09.90xA Unspecified injury of head, initial encounter Office Visit 12/14/2017 4:00p Main Office AMARIS Jones R53.83 Other fatigue M54.5 Low back pain Office Visit 11/25/2017 1:00p Main Office THA JonesP M54.5 Low back pain Z82.69 Family history of diseases of the ms sys and connective tiss Office Visit 11/10/2017 10:45a Main Office Lucy Newberry, R53.83 Other fatigue Afnp-C M54.5 Low back pain M54.2 Cervicalgia Office Visit 10/14/2017 11:30a Main Office Ximena Funetes G43.019 Migraine w/o aura, FR[employer] NUT FARM WORKER intractable, without status migrainosus Office Visit 07/24/2017 1:00p Main Office Ximena Fuentes, Z00.00 Encntr for general FR[employer] OR NUT FARM WORKER adult medical exam w/o abnormal findings F41.9 Anxiety disorder, unspecified R51 Headache Office Visit 07/08/2017 1:00p Main Office AMARIS Jones J15.8 Pneumonia due to other specified bacteria R11.2 Nausea with vomiting, unspecified Office Visit 07/04/2017 11:00a Main Office Guadalupe jA N10 Acute pyelonephritis Terri Flanagan J15.8 Pneumonia due to other specified bacteria R94.4 Abnormal results of kidney function studies D50.8 Other iron deficiency anemias Office Visit 03/16/2017 3:00p Main Office Ximena Fuentes M54.5 Low back pain FR[employer] OR NUT FARM WORKER Office Visit 03/07/2017 11:30a Main Office Sofia Xavier B02.9 Zoster without Wilian, ELECTROMECHANICAL ASSEMBLY TECHNICIAN complications Office Visit 01/12/2017 2:30p Main Office Ximena Fuentes M54.5 Low back pain FR[employer] OR NUT FARM WORKER Office Visit 05/02/2016 1:15p Main Office Guadalupe Aj Z11.1 Encounter for Terri Flanagan screening for respiratory tuberculosis Office Visit 04/30/2016 9:30a Main Office Ximena Fuentes, Z00.00 Encntr for general FR[employer] OR NUT FARM WORKER adult medical exam w/o abnormal findings Z11.1 Encounter for screening for respiratory tuberculosis R51 Headache Office Visit 08/13/2015 5:30p Main Office Ximena Fuentes, FRUIT OR NUT FARM WORKER F31.61 Bipolar disorder, current episode mixed, mild R63.5 Abnormal weight gain Office Visit 07/13/2015 2:30p Main Office Ximena Fuentes, FRUIT OR NUT FARM WORKER N39.0 Urinary tract infection, site not specified F31.61 Bipolar disorder, current episode mixed, mild R51 Headache Office Visit 05/07/2015 5:00p Main Office Ximena Fuentes, FRUIT OR NUT FARM WORKER F31.61 Bipolar disorder, current episode mixed, mild F41.9 Anxiety disorder, unspecified Office Visit 04/23/2015 5:00p Main Office Ximena Fuentes, FRUIT OR NUT FARM WORKER F31.61 Bipolar disorder, current episode mixed, mild F41.9 Anxiety disorder, unspecified Office Visit 04/09/2015 5:30p Main Office Ximena Fuentes, AMARIS F31.61 Bipolar disorder, current episode mixed, mild G43.109 Migraine with aura, not intractable, w/o status migrainosus F41.9 Anxiety disorder, unspecified Office Visit 03/22/2015 3:45p [facility] Office Ximena Fuentes, N39.0 Urinary tract FRUIT OR NUT FARM WORKER infection, site not specified F31.61 Bipolar disorder, current episode mixed, mild Office Visit 03/12/2015 5:00p Main Office AMARIS Jones F31.61 Bipolar disorder, current episode mixed, mild Z23 Encounter for immunization G43.109 Migraine with aura, not intractable, w/o status migrainosus F41.9 Anxiety disorder, unspecified Office Visit 02/23/2015 10:30a Main Office Ximena Fuentes, FRUIT OR NUT FARM WORKER F31.61 Bipolar disorder, current episode mixed, mild Office Visit 02/05/2015 6:00p Main Office Ximena Fuentes, FRUIT OR NUT FARM WORKER F31.61 Bipolar disorder, current episode mixed, mild R51 Headache G43.109 Migraine with aura, not intractable, w/o status migrainosus F17.210 Nicotine dependence, cigarettes, uncomplicated Office Visit 01/15/2015 6:00p Main Office Ximena Fuentes, FRUIT OR NUT FARM WORKER 296.60 Bipolar I Disorder Current Mixed NOS 784.0 Headache 346.00 Migraine Classical W/O Intractable 305.1 Tobacco Use Disorder 300.00 Anxiety State Unspec 780.52 Insomnia Unspecified Office Visit 11/27/2014 3:45p Main Office Ximena Fuentes, FRUIT OR NUT FARM WORKER 296.60 Bipolar I Disorder Current Mixed NOS 300.00 Anxiety State Unspec 780.52 Insomnia Unspecified Office Visit 09/18/2014 6:00p Main Office THA JonesP 296.60 Bipolar I Disorder Current Mixed NOS Office Visit 07/17/2014 6:00p Main Office Ximena Fuentes, FRUIT OR NUT FARM WORKER 296.60 Bipolar I Disorder Current Mixed NOS 346.00 Migraine Classical W/O Intractable 784.0 Headache Office Visit 06/05/2014 6:15p Main Office Ximena Fuentes, FRUIT OR NUT FARM WORKER 296.60 Bipolar I Disorder Current Mixed NOS 300.00 Anxiety State Unspec 780.52 Insomnia Unspecified Office Visit 05/15/2014 6:00p Main Office THA JonesP 296.60 Bipolar I Disorder Current Mixed NOS 300.00 Anxiety State Unspec 780.52 Insomnia Unspecified Office Visit 05/01/2014 6:00p Main Office Ximena Fuentes, FRUIT OR NUT FARM WORKER 296.60 Bipolar I Disorder Current Mixed NOS V58.69 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 Soybean Grower (Current) Use Of Other Medication 780.52 Insomnia Unspecified 300.00 Anxiety State Unspec 346.00 Migraine Classical W/O Intractable Office Visit 04/14/2014 9:15a Main Office THA JonesP 296.60 Bipolar I Disorder Current Mixed NOS Office Visit 04/03/2014 7:00p Main Office THA JonesP 296.60 Bipolar I Disorder Current Mixed NOS Office Visit 02/03/2014 1:00p Main Office Ximena Fuentes, FRUIT OR NUT FARM WORKER 780.79 Malaise And Fatigue Other V17.89 Family History Other Musculoskeletal Diseases Office Visit 12/01/2013 1:00p [facility] Ximena Fuentes, 300.00 Anxiety State FRUIT OR NUT FARM WORKER Unspec 346.00 Migraine Classical W/O Intractable 784.0 Headache Office Visit 10/27/2013 1:00p [facility] Ximena Fuentes, 311 Depressive FRUIT OR NUT FARM WORKER Disorder Not Elsewhere Spec 300.00 Anxiety State Unspec Office Visit 10/10/2013 10:00a Main Office Mercedes Brown, ELECTROMECHANICAL ASSEMBLY TECHNICIAN 311 Depressive Disorder Not Elsewhere Spec 300.00 Anxiety State Unspec Office Visit 10/06/2013 1:00p [facility] Ximena Laroser, 300.00 Anxiety State FRUIT OR NUT FARM WORKER Unspec 311 Depressive Disorder Not Elsewhere Spec Office Visit 09/29/2013 1:30p [facility] Ximena Brisenorer, 300.00 Anxiety State FRUIT OR NUT FARM WORKER Unspec 311 Depressive Disorder Not Elsewhere Spec Office Visit 09/15/2013 3:45p [facility] Mercedes Swenson, 053.9 Herpes Zoster W/O ELECTROMECHANICAL ASSEMBLY TECHNICIAN Complication Office Visit 08/26/2013 2:30p [facility] Dipti 784.0 Headache Ajay, Afnp-C 346.00 Migraine Classical W/O Intractable Office Visit 08/04/2013 1:00p [facility] Guadalupe Aj V70.0 Examination Terri Flanagan [facility] Routine AT [facility] 477.9 Rhinitis Allergic Cause Unspec 268.9 Vitamin D Deficiency Unspec 346.00 Migraine Classical W/O Intractable Plan of Treatment 09/14/2018 - Guadalupe Flanagan M.D.R53.83 Other fatigueNew Labs:CBC W/Diff, Ordered: 09/14/18Tickborne Panel CMC, Ordered: 09/14/18Ana Comprehensive Panel, Ordered: 09/14/18Erythrocyte Sed Rate, Ordered: 09/14/18CRP (High Sensitivity), Ordered: 09/14/18Cyclic Citrullinated Peptide, Ordered: 09/14/18Heavy Metals Panel Blood, Ordered: 09/14/18Comments:acupuncture will help you feel better. Might keep you from getting Pneumonia next year.[place] [facility].JJ [place] - protein powdermFollow up:4-6 weeks.AllComments:Medication Management Patient Understands medications she's taking? Yes No Are there Barriers to Adherence? Yes No Has the patient been asked about herbal supplements and therapies, and OTC meds? Yes No
--- NOTE | 2018-09-27 19:50 | ED ---
Complex/Multi-Sys Presentation - HPI Summary HPI Summary: Patient is a 33 y/o F presenting to ED with complaints of muscle spasms, nausea , PATEL, hot flashes and a metallic taste in her mouth. PMHx of Serotonin syndrome from around four years ago. Patient is concerned that she is having this again. She notes that she experienced similar Sx previously, with the exception of the metallic taste in her mouth. Patient was started on duloxentine 6-9 months ago for her depression. Patient states that around 3 weeks ago, her provider increased her dosage from 40 mg to 60 mg. 3-4 days ago, the patient began to experience Sx. Patient is additionally on Lyrica 75 mg BID, which has recently been increased, and a Fentanyl patch for fibromyalgia. On triage, pain is rated 4/10, nothing is noted to aggravate/alleviate Sx. Home medications and allergies are reviewed. - History Of Current Complaint Chief Complaint: EDGeneral Time Seen by Provider: 09/27/18 19:21 Hx Obtained From: Patient Onset/Duration: Lasting Days - Sx onset 3-4 days ago, Still Present Timing: Constant, Days - Sx onset 3-4 days ago Severity Currently: Moderate - 4/10 Location: Pain At: - head Character: Typical Headache Aggravating Factor(s): nothing Alleviating Factor(s): nothing Associated Signs And Symptoms: Positive: Headache, Nausea, Other - muscle spasms , hot flashes, metallic taste in mouth - Allergies/Home Medications Allergies/Adverse Reactions: Allergies Allergy/AdvReac Type Severity Reaction Status Date / Time Sulfa (Sulfonamide AdvReac Mild Rash Verified 09/27/18 18:53 Antibiotics) PMH/Surg Hx/FS Hx/Imm Hx Endocrine/Hematology History: Denies: Hx Diabetes - Gestational (3RD) Cardiovascular History: Denies: Hx Hypertension - (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, Hx Pacemaker/ ICD Respiratory History: Reports: Hx Pneumonia - 2018 pneumonia, septic Denies: Hx Asthma History: Denies: Hx Renal Disease Musculoskeletal History: Reports: Hx Back Problems Sensory History: Denies: Hx Contacts or Glasses, Hx Hearing Aid Opthamlomology History: Denies: Hx Contacts or Glasses Neurological History: Reports: Hx Migraine, Other Neuro Impairments/Disorders - mother has MS in same body areas Psychiatric History: Reports: Hx Anxiety - post anxiety, Hx Panic Disorder - hx of anxiety mostly related Denies: Hx Eating Disorder, Hx of Violent Episodes Against Others - Surgical History Surgery Procedure, Year, and Place: 2007, 2009, 2012 c section. appendectomy in 2005,. wisdom teeth,. paratoid cyst removal 2009,. exploratory laparatomy for endometriosis 1999,. nasal septum 2007 Hx Anesthesia Reactions: No Infectious Disease History: No Infectious Disease History: Reports: Hx Shingles - maybe 2x Denies: Hx Clostridium Difficile, Hx Hepatitis, Hx Human Immunodeficiency Virus (HIV), Hx of Known/Suspected MRSA, Hx Tuberculosis, Hx Known/Suspected VRE , Hx Known/Suspected VRSA, History Other Infectious Disease, Traveled Outside the [place] in Last 30 Days - Family History Known Family History: Negative: Cardiac Disease - Social History Alcohol Use: None Hx Substance Use: No Substance Use Type: Reports: None Hx Tobacco Use: Yes Smoking Status (MU): Current Every Day Smoker Type: Cigarettes Amount Used/How Often: 1/2 PPD Length of Time of Smoking/Using Tobacco: On and Off for 16 Years (~8 Years) Have You Smoked in the Last Year: Yes Review of Systems Constitutional: Other - POSITIVE - HOT FLASHES, METALLIC TASTE IN MOUTH Positive: Nausea Musculoskeletal: Other - POSITIVE - MUSCLE SPASMS Positive: Headache All Other Systems Reviewed And Are Negative: Yes Physical Exam - Summary Physical Exam Summary: VITAL SIGNS: Reviewed. GENERAL: Patient is a well-developed and nourished female who is lying comfortable in the stretcher. Patient is not in any acute respiratory distress. No hyperreflexia, normal reflexes, knee jerk normal HEAD AND FACE: No signs of trauma. No ecchymosis, hematomas or skull depressions. No sinus tenderness. EYES: PERRLA, EOMI x 2, No injected conjunctiva, no nystagmus. EARS: Hearing grossly intact. Ear canals and tympanic membranes are within normal limits. MOUTH: Oropharynx within normal limits. NECK: Supple, trachea is midline, no adenopathy, no JVD, no carotid bruit, no c- spine tenderness, neck with full ROM CHEST: Symmetric, no tenderness at palpation LUNGS: Clear to auscultation bilaterally. No wheezing or crackles. CVS: Regular rate and rhythm, S1 and S2 present, no murmurs or gallops appreciated. ABDOMEN: Soft, non-tender. No signs of distention. No rebound no guarding, and no masses palpated. Bowel sounds are normal. EXTREMITIES: FROM in all major joints, no edema, no cyanosis or clubbing. NEURO: Alert and oriented x 3. No acute neurological deficits. Speech is normal and follows commands. SKIN: Dry and warm Triage Information Reviewed: Yes Vital Signs On Initial Exam: Initial Vitals Temp Pulse Resp BP Pulse Ox 97.9 F 107 18 141/104 98 09/27/18 17:38 09/27/18 17:38 09/27/18 17:38 09/27/18 17:38 09/27/18 17:38 Vital Signs Reviewed: Yes Diagnostics - Vital Signs Vital Signs Temp Pulse Resp BP Pulse Ox 09/27/18 17:38 97.9 F 107 18 141/104 98 - Laboratory Result Diagrams: 09/27/18 20:33 09/27/18 20:33 Lab Statement: Any lab studies that have been ordered have been reviewed, and results considered in the medical decision making process. - EKG 2009 Cardiac Rate: NL - rate of 87 BPM EKG Rhythm: Sinus Rhythm Summary of EKG Findings: EKG showed sinus rhythm with rate of 87 BPM, normal axis, normal interval, no ischemic changes. Re-Evaluation - Re-Evaluation First Eval Re-Evaluation Time: 22:14 Comment: Results of labs and tests were discussed with the patient. Patient does not appear to have Serotonin syndrome, Sx could due to mediation side effects. It was recommended to the patient that she decrease her duloxentine from 60 to 40 mg. Patient will be discharged to home and follow up with PCP within three days. Strict return precautions were given. Patient is agreeable with this plan. Complex Multi-Symp Course/Dx Course Of Treatment: Patient is a 33 y/o F presenting to ED with complaints of muscle spasms, nausea, PATEL, hot flashes and a metallic taste in her mouth. PMHx of Serotonin syndrome from around four years ago. Patient is concerned that she is having this again. She notes that she experienced similar Sx previously, with the exception of the metallic taste in her mouth. Patient was started on duloxentine 6-9 months ago for her depression. Patient states that around 3 weeks ago, her provider increased her dosage from 40 mg to 60 mg. 3-4 days ago, the patient began to experience Sx. Patient is additionally on Lyrica 75 mg BID , which has recently been increased, and a Fentanyl patch for fibromyalgia. On physical exam, patient is noted to have no hyperreflexia, normal knee jerk, normal reflexes. Labs showed Hgb 10.1, Hct 31, MCV 77, MCH 25, RDW 17, BUN/ creatinine ratio 23, AST 12, TSH 0.34. EKG showed sinus rhythm with rate of 87 BPM, normal axis, normal interval, no ischemic changes. During ED course, patient received fluids, protonix 40 mg IV, Zofran 8 mg IV, and Ativan 1 mg IV PUSH. Results of labs and tests were discussed with the patient. Patient does not appear to have Serotonin syndrome, Sx could due to mediation side effects. It was recommended to the patient that she decrease her duloxentine from 60 to 40 mg. Patient will be discharged to home and follow up with PCP within three days. Strict return precautions were given. Patient is agreeable with this plan. - Diagnoses Provider Diagnoses: Medication side effect Discharge - Sign-Out/Discharge Documenting (check all that apply): Patient Departure - discharge Patient Received Moderate/Deep Sedation with Procedure: No - Discharge Plan Condition: Stable Disposition: HOME Patient Education Materials: Serotonin Syndrome (ED) Referrals: Guadalupe Flanagan MD [Primary Care Provider] - 3 Days Additional Instructions: PLEASE RETURN TO THE ED IMMEDIATELY FOR WORSENING OR CONCERNING SYMPTOMS. FOLLOW UP WITH YOUR PRIMARY CARE PHYSICIAN WITHIN THREE DAYS. - Attestation Statements Document Initiated by Scribe: Yes Documenting Scribe: SHOLA CAMACHO Provider For Whom Danielle is Documenting (Include Credential): YAZ RAMON MD Scribe Attestation: SHOLA Galeano, scribed for YAZ RAMON MD on 09/27/18 at [id number]. Status of Scribe Document: Ready
[2018-09-27] MEDS ORDERED: NS 0.9% 1000 ML** 1,000 ML IV ONE (19:53)
[2018-09-27] MEDS ORDERED: Pantoprazole IV* 40 MG IV ONE (19:55)
[2018-09-27] MEDS ORDERED: Ondansetron INJ* 2 MG/ML VIAL IV ONE (19:56)
[2018-09-27] MEDS ORDERED: LORazepam INJ* 2 MG/ML 1 ML VIAL IV PUSH ONE (19:56)
[2018-09-27] MEDS ORDERED: Lorazepam PYXIS KEY PRN (19:56)
[2018-09-27] MEDS ORDERED: Lorazepam PYXIS KEY ONE (20:20)
[2018-09-27 20:45] LABS: ABS Basophils 0.1 10^3/ul (0-0.2); ABS Eosinophils 0.2 10^3/ul (0-0.6); ABS Lymphocytes 2.3 10^3/ul (1.0-4.8); ABS Monocytes 0.3 10^3/ul (0-0.8); ABS Neutrophils 3.9 10^3/ul (1.5-7.7); Eosinophil % 2.4 %; Hematocrit 31 % (35-47); Hemoglobin 10.1 g/dL (12.0-16.0); Lymphocyte % 34.2 %; Mean Corpuscular HGB Conc 32 g/dL (31-36); Mean Corpuscular Hemoglobin 25 pg (27-31); Mean Corpuscular Volume 77 fL (80-97); Mean Platelet Volume 8.7 fL (7.4-10.4); Nucleated Red Blood Cells % 0.1; Platelet Count 399 10^3/uL (150-450); Red Blood Count 4.05 10^6 /uL (3.70-4.87); Red Cell Distribution Width 17 % (10-15); White Blood Count 6.7 10^3/uL (3.5-10.8)
[2018-09-27 20:58] LABS: Albumin 4.8 g/dL (3.2-5.2); Albumin/Globulin Ratio 1.8 (1-3); Calcium 9.7 mg/dL (8.6-10.3); EGFR African American 135.1 (>60); EGFR Non-African American 111.6 (>60); Globulin 2.7 g/dL (2-4); Magnesium 2.4 mg/dL (1.9-2.7); Potassium 3.6 mmol/L (3.5-5.0); Total Bilirubin 0.2 mg/dL (0.2-1.0); Total Protein 7.5 g/dL (6.4-8.9)
[2018-09-27 21:27] LABS: TSH (Thyroid Stimulating Horm) 0.34 mcIU/mL (0.34-5.60)
[2018-09-27 22:28] VITALS: BP 142/91
== END 2018-09-27 22:28 | disposition home or self-care (01) ==
LOC: ED 17:36
DX: M62.838 Other muscle spasm (principal); R11.0 Nausea; R51 Headache; R23.2 Flushing; R43.9 Unspecified disturbances of smell and taste; T43.215A Adverse effect of selective serotonin and norepinephrine reuptake inhibitors, initial encounter; Y92.9 Unspecified place or not applicable; M79.7 Fibromyalgia; F32.9 Major depressive disorder, single episode, unspecified; Z88.2 Allergy status to sulfonamides; F17.210 Nicotine dependence, cigarettes, uncomplicated
CPT/HCPCS: 36415; 80053; 82550; 83735; 84443; 85025; 93005; 96361; 96374; 96375; 99283; J2060; J2405